=== PATIENT | female | born 1960 | race Caucasian/White ===

== ENCOUNTER 2017-07-21 10:25 | Inpatient (IN) | payer BC ==
[~2017-07-21] VITALS: Ht 157.5 cm; Wt 43.0 kg
[~2017-07-21 10:25] MED LIST: AMLODIPINE BESYL5 MG PO; AVELOX400 MG PO; FLORASTOR250 M1 PO; IPRATROPIU0.5 MG/3 M NEB; LEVAQUIN750 MG PO; PREDNISONE10 MG PO
--- NOTE | 2017-07-21 10:25 | NUR ---
PT TO ROOM FOR TREATMENT
[2017-07-21 10:51] LABS: HEMATOCRIT 47.9 % (37.0-47.0); HEMOGLOBIN 16.1 g/dl (12.0-16.0); MEAN CELL VOLUME 98.4 fL CALC (80.0-100.0); MEAN CORPUSCULAR HGB 33.1 pG CALC (26.0-32.0); MEAN CORPUSCULAR HGB CONC 33.6 g/L CALC (32.0-36.0); NEUT# 12.34 thou/uL (2.00-7.15); RED BLOOD COUNT 4.87 mill/uL (4.20-5.60); RED CELL DISTRI WIDTH 13.2 % (11.5-15.5)
--- NOTE | 2017-07-21 10:54 | NUR ---
PT TO ROOM FOR BEDSIDE TRIAGE; NOTED TO BE SOB, STATES HAS KNOWN PNEMONIA. EKG OBTAINED WITH RESULTS TO DR. WILL. IV ESTABLISHED WITH LABS. RT AT BEDSIDE.
[2017-07-21 10:57] LABS: ALBUMIN 4.2 g/dL (3.2-5.0); ALKALINE PHOSPHATASE 62 u/l (38-126); ANION GAP 14 (6-22 (CALC)); BILIRUBIN, TOTAL 0.5 mg/dL (0.0-1.4); BUN 10 mg/dL (7-17); BUN/CREATININE RATIO 15 (12-20 (CALC)); CALCIUM 9.1 mg/dL (8.4-10.2); CARBON DIOXIDE 31 mmol/l (22-30); CHLORIDE 99 mmol/l (95-108); CREATININE 0.6 mg/dL (0.5-1.0); GFR > 60 ML/MIN (>=60 (CALC)); GFR FOR AFR.AMER. > 60 ML/MIN (>=60 (CALC)); GLUCOSE 97 mg/dL (65-105); POTASSIUM 4.1 mmol/l (3.5-5.1); SGOT/AST 20 u/l (14-36); SGPT/ALT 37 u/l (9-52); SODIUM 141 mmol/l (137-146)
[2017-07-21] MEDS ORDERED: SYMBICORT1 AE1 IN (11:02)
[2017-07-21] MEDS ORDERED: PROAIR HFA IN (11:02)
[2017-07-21 11:11] LABS: MYOGLOBIN 80 ng/mL (0 - 62)
--- NOTE | 2017-07-21 11:50 | NUR ---
PATIENT RESTING COMRFORTABLY IN STRETCHER WITH HOB ELEVATED. SA02 96% ON 2 L NC. PATIENT DENIES ANY PAIN OR SOB AT THIS TIME. PATIENT REPORTS CONTINUED L ARM TINGLING. PATIENT DENIES ANY NEEDS AT THIS TIME. CALL GILLETTE WITHIN REACH.
--- NOTE | 2017-07-21 12:40 | NUR ---
PATIENT AWARE OF PENDING ADMISSION. PATIENT DENIES ANY SOB OR PAIN AT THIS TIME. PATIENT RESTING COMFORTABLY IN STRETCHER WITH HOB ELEVATED, DENIES ANY NEEDS AT THIS TIME. CALL GILLETTE NAVEEN WALL, WILL CONTINUE TO MONITOR.
--- NOTE | 2017-07-21 12:45 | NUR ---
ADVISED OF ELEVATED LACTIC ACID RESULTS. NO NEW ORDERS RECIEVED.
--- NOTE | 2017-07-21 12:47 | NUR ---
SBAR PRINTED TO FLOOR
--- NOTE | 2017-07-21 12:53 | NUR ---
REPORT GIVEN TO KHAI.
--- NOTE | 2017-07-21 13:05 | NUR ---
Admission Note Report Given to: sbar printed to floor Transported by: Wheelchair x Stretcher Transported with: x Nurse Transporter x Patent IV O2 First Officer
[2017-07-21 13:16] VITALS: BP 131/71
--- NOTE | 2017-07-21 13:27 | NUR ---
REPORT RECEIVED FROM ERA IN ED, PT ARRIVED ON UNIT ACCOMPANIED BY STAFF ADRI, ALERT AND ORIENTED X 3, SOB AND WINDED AND THIS TIME, ROOM FAN PLACED, O2 @ 2L IN PLACE VIA NC, EDUCATED ON FALL PRECAUTION. ORIENTED TO ROOM AND CALL GILLETTE, DENIES PAIN AT THIS TIME, SETTLED IN ROOM ON SIDE OF BED IN SITTING POSITION FOR IMPROVED BREATHING. WILL CONTINUE TO MONITOR.
--- NOTE | 2017-07-21 15:43 | NUR ---
RESTING IN BED AT THIS TIME, BREATHING STILL SHALLOW BUT IMPROVING, SPOUSE AT BEDSIDE, CALL GILLETTE IN REACH.
[2017-07-21 16:36] LABS: URINE BILIRUBIN - DIPSTICK NEGATIVE (NEGATIVE); URINE BLOOD DIPSTICK NEGATIVE (NEGATIVE); URINE CLARITY CLEAR; URINE COLOR YELLOW; URINE GLUCOSE - DIPSTICK NEGATIVE (NEGATIVE); URINE KETONE NEGATIVE (NEGATIVE); URINE LEUK ESTERASE NEGATIVE (NEGATIVE); URINE NITRITE - DIPSTICK NEGATIVE (Negative); URINE PROTEIN - DIPSTICK NEGATIVE (NEG-TRACE); URINE UROBILINOGEN - DIPSTICK 0.2 E.U./dL (0.2)
[2017-07-21 17:05] VITALS: BP 153/71
[2017-07-21 19:40] VITALS: BP 142/68
--- NOTE | 2017-07-21 19:51 | NUR ---
PT IN BED WATCHING TV RESPIRATIONS EVEN AND UNLABORED ON O2 @2L VIA NC, BECOMES SOB WHEN TALKING, WHEEZING AUDIBLE, IV FLUIDS STARTED TO LAC AT 75CC/HR, INFUSING WITH NO COMPLICATIONS. ATE 25% OF 2GM NA DINNER. ENCOURAGED TO USE CALL LIGHT FOR ASSISTNACE, WILL CONTINUE TO MONITOR.
--- NOTE | 2017-07-21 21:00 | NUR ---
C/O PAIN TO LAC IV SITE, NEW IV STARTED TO LFA #20 ON 1ST ATTEMPT, IV TO LAC DC'D WITH CATH TIP INTACT, TOLERATED WELL. IV FLUIDS INFUSING WITH NO COMPLICATIONS.
--- NOTE | 2017-07-22 00:12 | NUR ---
RESTING ON LEFT SIDE WITH EYES CLOSED, RESPIRATIONS EVEN AND UNLABORED. IV FLUIDS INFUSING TO LFA WITH NO COMPLICATIONS, CALL LIGHT IN REACH.
--- NOTE | 2017-07-22 04:50 | NUR ---
MORNING BLOOD WORK DRAWN BY COMMUNICATIONS SUPERINTENDENT, PT TOLERATED WELL. ADMITS TO HAVING A GOOD NIGHTS SLEEP, RESPIRATIONS EVEN AND UNLABORED. FRESH ICE WATER PROVIDED PER PT REQUEST. CALL LIGHT IN REACH.
[2017-07-22 05:02] VITALS: BP 148/67
[2017-07-22 05:30] LABS: ANION GAP 8 (6-22 (CALC)); BUN 10 mg/dL (7-17); BUN/CREATININE RATIO 21 (12-20 (CALC)); CALCIUM 8.4 mg/dL (8.4-10.2); CARBON DIOXIDE 30 mmol/l (22-30); CHLORIDE 107 mmol/l (95-108); CREATININE 0.5 mg/dL (0.5-1.0); GFR > 60 ML/MIN (>=60 (CALC)); GFR FOR AFR.AMER. > 60 ML/MIN (>=60 (CALC)); GLUCOSE 149 mg/dL (65-105); MAGNESIUM 2.4 mg/dL (1.6-2.3); POTASSIUM 4.5 mmol/l (3.5-5.1); SODIUM 139 mmol/l (137-146)
--- NOTE | 2017-07-22 06:35 | NUR ---
PT REQUESTING NICOTINE PATCH EARLY, APPLIED TO FERMIN.
--- NOTE | 2017-07-22 07:00 | NUR ---
SHIFT CHANGE REPORT FROM MARIANO, ALAINA AWAKE ALERT AND ORIENTED SITTING UP IN BED AND WATCHING TV, BREATHING MUCH IMPROVED SINCE YESTERDAY, O2 @ 2L VIA NC IN PLACE, IVF INFUSING, CALL GILLETTE IN REACH.
--- NOTE | 2017-07-22 12:56 | NUR ---
ATTEMPTED TO AMBULATE PT EARLIER BUT WAS TOO SOB AT THAT TIME, REASSESSED PT AT THIS TIME BUT REFUSED AGAIN STATING SHE WILL TRY LATER. BASED ON MY ASSESSMENT OF PT I WILL AGREE WITH HER AT THIS TIME SHE IS WINDED/HYPERVENTILATING. ENCOURAGED TO DO PURSED LIP BREATHING, WILL CONTINUE TO MONITOR.
--- NOTE | 2017-07-22 14:38 | NUR ---
COUGHING PROFUSELY AT THIS TIME, GUAIFENESIN SUSPENSION OFFERED.
--- NOTE | 2017-07-22 15:56 | NUR ---
COUGHING HAS SUBSIDED AND PT REPORTS COUGH MED MADE HER FEEL BETTER; HOWEVER, SHE DECLINED TO AMBULATE AT THIS TIME STATING SHE IS NOT YET READY, WILL CONTINUE TO MONITOR.
[2017-07-22 16:05] VITALS: BP 135/55
--- NOTE | 2017-07-22 17:50 | NUR ---
O2 DECREASED TO 1L FOR PAST 30 MINS, SATS AT 100% AT THIS TIME, BREATHING EVEN AND NON-LABORED.
--- NOTE | 2017-07-22 19:20 | NUR ---
RECEIVED BEDSIDE REPORT FROM KHAIRN;PT RESTING IN SEMI FOWLERS POSITION WATCHING TV;RESPIRATIONS EVEN AND UNLABORED ON 02 @ 1L VIA NC;VS OBTAINED,02 SATS @ 97%;ASSESSMENT COMPLETED;#20G TO LFA INFUSING D5 LR @ 75ML/HR;PT A&O X3;SKIN INTACT,NICOTINE PATCH NOTED TO RIGHT UPPER ARM;PT VOICES NO COMPLAINTS AT THIS TIME;SAFETY PRECAUTIONS REINFORCED;PT EDUCATED TO CALL FOR ASSISTANCE IF NEEDED;COMMODE AT BEDSIDE;CALL LIGHT IN REACH;WILL CONTINUE TO MONITOR
[2017-07-22 19:25] VITALS: BP 138/70
--- NOTE | 2017-07-22 20:50 | NUR ---
PT REQUESTS COUGH MEDICATION;PT MEDICATED WITH PRN GUAIFENESIN-CODEINE AT THIS TIME
--- NOTE | 2017-07-22 23:20 | NUR ---
PT RESTING IN SUPINE POSITION WATCHING TV;PT O2 CHECKED, O2 SATS @ 96% ON OXYGEN AT 1L;RESPIRATIONS EVEN AND UNLABORED;BEDSIDE COMMODE EMPTIED OF 700CC OF CLEAR/YELLOW URINE;PT DENIES ANY NEEDS AT THIS TIME;FALL PRECAUTIONS IN PLACE;WILL CONTINUE TO MONITOR
--- NOTE | 2017-07-23 01:05 | NUR ---
RT AT BEDSIDE;PT 02 SATS @ 97% ON RA;PT DENIES ANY SOB;RESPIRATIONS EVEN AND UNLABORED;PT VOICES NO COMPLAINTS AT THIS TIME;CALL LIGHT IN REACH;WILL CONTINUE TO MONITOR
--- NOTE | 2017-07-23 03:40 | NUR ---
PATIENT CONT UP AND DOWN TO THE BR WITHOUT ANY DIFFICULTY. VOIDING IN GOOD AMTS. ABD DRESSINGS CHANGED=SCANT AMT OF SEROUS DRAINAGE NOTED FROM THE POST-OP INCISION AND SMALL AMT OF SEROUS NOTED FROM OLD OSTOMY SITE. RAMSEY INTACT AND WELL APPROXIMATED. DSD REAPPLIED ORDERED. DRESSING REMOVED FROM ISAIAH SITE WITH SCANT DRAINAGE AND LARGE BANDAID APPLIED. PATIENT HAVING ALOT OF BELCHING AND AMT IN THE HALLS. TOLERATED WELL. SITTING UP IN THE RECLINER AT THIS TIME. PAIN MANAGEMENT DOING WELL WITH TORADOL. SAFETY PRECAUTIONS REINFORCED. CALL LIGHT IN REACH. WILL CONT TO MONITOR.
--- NOTE | 2017-07-23 03:50 | NUR ---
PT APPEARS TO BE RESTING IN SEMI FOWLERS POSITION;NO SIGNS OF DISTRESS;PT REPORTS DIFFICULTY SLEEPING THROUGHOUT THE NIGHT;RESPIRATIONS EVEN AND UNLABORED ON RA;VS OBTAIN;02 SATS @ 91%;FAN AT BEDSIDE FOR COMFORT;PT VOICES NO COMPLAINTS AT THIS TIME;PT EDUCATED TO CALL FOR ASSISTANCE IF NEEDED;SAFETY PRECAUTIONS IN PLACE;WILL CONTINUE TO MONITOR
[2017-07-23 03:51] VITALS: BP 128/65
--- NOTE | 2017-07-23 06:00 | NUR ---
FRESH WATER AND COFFEE PROVIDED TO PT PER REQUEST;NO SIGNS OF DISTRESS NOTED;PT RESTING IN SEMI FOWLERS POSITION WATCHING TV;WILL CONTINUE TO MONITOR
--- NOTE | 2017-07-23 07:04 | NUR ---
REPORT RECEIVED FROM NIGHT NURSE, UPON ENTERING ROOM PT.IS SITTING UP IN BED IN SLIGHT TRIPOD POSITION COUGHING. PT.ASKED FOR COUGH SYRUP. V/S ARE BE3ING AWSSESSED AND PT. PROVIDED WITH COUGH SYRUP.
[2017-07-23 07:08] VITALS: BP 161/72
--- NOTE | 2017-07-23 07:30 | NUR ---
PT.MEDICATED WITH ROBITUSSIN REQUESTED, ASSESSMENT COMPLETED, EXPIRATORY WHEEZING LUNG SOUNDS IN ALL LOBES, SKIN INTACT, PT.LOCX3, PT.WANTED O2 ON FOR A LITTLE WHILE/02 SAT AT 99% ON 02@1L. DENIES ANY PAIN OR DISCOMFORT AT THIS TIME AND IS REQUESTING FRESH COFFEE AT THIS TIME, COFFEE WILL BE PROVIDED AND WILL FOLLOW-UP WITH AM MEDICATIONS ORDERED.
[2017-07-23 08:08] VITALS: BP 153/54
[2017-07-23 13:15] VITALS: BP 155/74
--- NOTE | 2017-07-23 14:05 | NUR ---
PT.UPRIGHT IN BED WATCHING TV. DENIES ANY NEEDS AT THIS TIME. NO S/S OF DISTRESS. PT.O2SAT ON ROOM AIR 93% PT.AMBULATED ROOM W/MILD SOB REPORTED. CALL LIGHT IS AT SIDE AND PT.REMINDED TO CALL IF ANY NEEDS ARISE
[2017-07-23 16:40] VITALS: BP 174/68
--- NOTE | 2017-07-23 17:55 | NUR ---
PT.MEDICATED ORDERS PROVIDE, SUPPER TRAY CLEARED HALF EATEN/PT.ASKED FOR TRAY TO BE TAKEN. IV ANTIBIOTIC THERAPY IS COMPLETE, IV FLUSHED. PT.DENIES ANY OTHER NEEDS AT THIS TIME, CALL LIGHT AT SIDE.
--- NOTE | 2017-07-23 18:29 | NUR ---
PT.UPRIGHT IN BED, REPORTS AMBULATED ROOM. REPORTS MILD SOB/DENIES DISTRESS AMBULATING. LUNG SOUNDS ARE MILD EXPIRATORY WHEEZING, BUT IMPROVED FROM THIS MORNING.
--- NOTE | 2017-07-23 19:50 | NUR ---
PT RESTING IN SEMI FOWLERS POSITION WATCHING TV;PT VOICES NO COMPLAINTS AT THIS TIME;RESPIRATIONS APPEAR EVEN AND UNLABORED ON RA;ASSESSMENT COMPLETED AND VS OBTAINED;02 SATS @ 92%;FAN AT BEDSIDE FOR COMFORT;#20G TO LEFT FOREARM FLUSHED AND PATENT;NON-PRODUCTIVE COUGH NOTED;SKIN INTACT;SAFETY PRECAUTIONS REINFORCED;PT DENIES ANY NEEDS AT THIS TIME AND IS EDUCATED TO CALL FOR ASSISTANCE IF NEEDED;BED IN LOWEST POSITION WITH CALL LIGHT IN REACH;WILL CONTINUE TO MONITOR
[2017-07-23 19:54] VITALS: BP 143/74
--- NOTE | 2017-07-24 00:25 | NUR ---
PT AWAKE WATCHING TV;OXYGEN CHECKED AT THIS TIME REPORTING 93% ON RA;RESP EVEN AND UNLABORED;BEDSIDE COMMODE EMPTIED OF 300CC OF CLEAR/YELLOW URINE;ICE CREAM PROVIDED PER REQUEST;PT DENIES ANY OTHER NEEDS AT THIS TIME;CALL LIGHT IN REACH;WILL CONTINUE TO MONITOR
[2017-07-24 04:39] VITALS: BP 139/91
--- NOTE | 2017-07-24 04:40 | NUR ---
RT JUST LEFT BEDSIDE;PT WATCHING TV IN SEMI FOWLERS POSITION;PRODUCTIVE COUGH NOTED;RESP EVEN AND UNLABORED ON RA;VS OBTAINED WITH AN 02 SAT OF 91%;PT VOICES NO COMPLAINTS;FRESH WATER PROVIDED PER REQUEST;PT DENIES THE NEED FOR PRN GUAIFENESIN;FALL PRECAUTIONS IN PLACE;WILL CONTINUE TO MONITOR
[2017-07-24 05:39] LABS: MEAN CELL VOLUME 97.4 fL CALC (80.0-100.0); MEAN CORPUSCULAR HGB 32.5 pG CALC (26.0-32.0); MEAN CORPUSCULAR HGB CONC 33.3 g/L CALC (32.0-36.0); RED BLOOD COUNT 4.31 mill/uL (4.20-5.60)
[2017-07-24 05:43] LABS: ANION GAP 12 (6-22 (CALC)); BUN 11 mg/dL (7-17); BUN/CREATININE RATIO 20 (12-20 (CALC)); CALCIUM 8.8 mg/dL (8.4-10.2); CARBON DIOXIDE 30 mmol/l (22-30); CHLORIDE 104 mmol/l (95-108); CREATININE 0.6 mg/dL (0.5-1.0); GFR > 60 ML/MIN (>=60 (CALC)); GFR FOR AFR.AMER. > 60 ML/MIN (>=60 (CALC)); GLUCOSE 108 mg/dL (65-105); MAGNESIUM 2.4 mg/dL (1.6-2.3); POTASSIUM 4.1 mmol/l (3.5-5.1); SODIUM 142 mmol/l (137-146)
--- NOTE | 2017-07-24 06:40 | NUR ---
PT TO XRAY AT THIS TIME VIA WC
--- NOTE | 2017-07-24 06:50 | NUR ---
PT TRANSFERRED BACK TO FLOOR IN STABLE CONDITION VIA WC
--- NOTE | 2017-07-24 07:00 | NUR ---
SHIFT CHANGE REPORT FROM SUSAN, PT AWAKE ALERT AND ORIENTED, BREATHING EVEN AND NON-LABORED ON ROOM AIR, STATES SHE FEELS MUCH BETTER AND HAS BEEN AMBULATING IN ROOM, ALL NEEDS ADDRESSED, CALL GILLETTE IN REACH.
[2017-07-24 07:58] VITALS: BP 144/76
[2017-07-24] MEDS ORDERED: WELLBUTRIN150 M1 PO (11:17)
[2017-07-24] MEDS ORDERED: PREDNISONE10 MG PO (11:18)
[2017-07-24] MEDS ORDERED: NICODERM C21 MG/242 TD (11:19)
[2017-07-24] MEDS ORDERED: VITAMIN B-121000 MCG PO (11:19)
--- NOTE | 2017-07-24 12:09 | NUR ---
DR POTTS REPORTED PRESCRIPTIONS FAXED TO [facility] AND THEY REPORTED THEY HAD NOT RECIEVED THEM, PHARMACY CALLED AND STAFF REPORTED ORDERS ARE RECEIVED AT THIS TIME.
--- NOTE | 2017-07-24 12:09 | NUR ---
AM: THE THERAPIST ENTERED THE ROOM TO COMPLETE A P.T. EVALUATION. STATED SHE WAS GOING HOME. PATIENT IS DRESSED. STATED SHE DRESSED AND PACKED INDEP. STATED SHE DID NOT REQUIRE THERAPY SHE WAS WALKING ALL OVER THE ROOM. SHE STOOD AND MOVED AROUND FOR THE THERAPIST AND THE THERAPIST AGREED AN EVAL WAS NOT APPROPRIATE AT THIS TIME.
--- NOTE | 2017-07-24 12:36 | NUR ---
Discharge instructions given. Patient verbalizes understanding of same. Discharged in stable condition via Wheelchair to Home with spouse. All belongings sent with pt.
== END 2017-07-24 12:20 | disposition home or self-care (01) | DRG 191 ==
LOC: ED 10:25 → ED-I 11:04 → ED 12:47 → MS2 12:48
PROVIDERS: Emergency Medicine; Internal Medicine; ADMIT Internal Medicine; ATTEND Internal Medicine
DX: J44.1 Chronic obstructive pulmonary disease with (acute) exacerbation (principal); Z68.1 Body mass index [BMI] 19.9 or less, adult; G62.9 Polyneuropathy, unspecified; E53.8 Deficiency of other specified B group vitamins; R63.6 Underweight; J44.0 Chronic obstructive pulmonary disease with (acute) lower respiratory infection; J20.9 Acute bronchitis, unspecified; F17.210 Nicotine dependence, cigarettes, uncomplicated; M81.0 Age-related osteoporosis without current pathological fracture; R03.0 Elevated blood-pressure reading, without diagnosis of hypertension; T38.0X5A Adverse effect of glucocorticoids and synthetic analogues, initial encounter; D72.829 Elevated white blood cell count, unspecified
CPT/HCPCS: J1650

== ENCOUNTER 2017-08-21 18:31 | Inpatient (IN) | payer BC ==
[~2017-08-21] VITALS: Ht 154.9 cm; Wt 42.2 kg
[~2017-08-21 18:31] MED LIST changes: +NICODERM C21 MG/242 TD; +PROAIR HFA IN; +SYMBICORT1 AE1 IN; +VITAMIN B-121000 MCG PO; +WELLBUTRIN150 M1 PO
--- NOTE | 2017-08-21 18:38 | NUR ---
PATIENT TO ROOM VIA EMS AND PHYSICIAN AT BEDSIDE FOR EVALUATION
--- NOTE | 2017-08-21 19:02 | NUR ---
BREATHING TREATMENT GIVEN BACK TO BACK FOR WHEEZING AND SOB. BREATHING TECH. FOR GOOD DEPOSITION TO THE LUNGS.
[2017-08-21] MEDS ORDERED: PROTONIX40 M2 PO (19:03)
--- NOTE | 2017-08-21 19:16 | NUR ---
RECEIVED REPORT FROM DAMARIS MENDOZA AND TOOK OVER PT CARE. WHILE ADMINISTERING SOULMEDROL INFORMED PT OF NEED TO QUIT SMOKING. INFORMED PT HER BREATHING PROBLEMS DUE TO SMOKING AND PT TOLD ME NO IT'S NOT. DISCUSSED IN LENGTH WITH FAMILY IN THE ROOM ABOUT THE EFFECTES SMOKING WAS DOING TO PT AND STOPPING WILL PREVENT FURTHER DAMAGE BUT NOT REPAIR DAMAGED TISSUE.
[2017-08-21 19:29] LABS: HEMATOCRIT 41.7 % (37.0-47.0); HEMOGLOBIN 13.8 g/dl (12.0-16.0); IMMATURE GRANULOCYTES 0.9 % (0.0-1.0); MEAN CELL VOLUME 96.1 fL CALC (80.0-100.0); MEAN CORPUSCULAR HGB 31.8 pG CALC (26.0-32.0); MEAN CORPUSCULAR HGB CONC 33.1 g/L CALC (32.0-36.0); NEUT# 13.02 thou/uL (2.00-7.15); RED BLOOD COUNT 4.34 mill/uL (4.20-5.60); RED CELL DISTRI WIDTH 13.6 % (11.5-15.5)
[2017-08-21 19:45] LABS: ALBUMIN 4.2 g/dL (3.2-5.0); ALKALINE PHOSPHATASE 70 u/l (38-126); ANION GAP 13 (6-22 (CALC)); BILIRUBIN, TOTAL 0.5 mg/dL (0.0-1.4); BUN 5 mg/dL (7-17); BUN/CREATININE RATIO 9 (12-20 (CALC)); CALCIUM 9.2 mg/dL (8.4-10.2); CARBON DIOXIDE 28 mmol/l (22-30); CHLORIDE 97 mmol/l (95-108); CREATININE 0.6 mg/dL (0.5-1.0); GFR > 60 ML/MIN (>=60 (CALC)); GFR FOR AFR.AMER. > 60 ML/MIN (>=60 (CALC)); GLUCOSE 132 mg/dL (65-105); POTASSIUM 4.2 mmol/l (3.5-5.1); SGOT/AST 26 u/l (14-36); SGPT/ALT 31 u/l (9-52); SODIUM 134 mmol/l (137-146); TOTAL PROTEIN 7.1 g/dL (6.3-8.2)
--- NOTE | 2017-08-21 19:49 | NUR ---
DR WILL IN TO UPDATE PT AND FAMILY ON PLAN OF CARE.
[2017-08-21 19:57] LABS: MYOGLOBIN 97 ng/mL (0 - 62)
--- NOTE | 2017-08-21 20:16 | NUR ---
REPEAT EKG DONE PER REQUEST.
--- NOTE | 2017-08-21 20:30 | NUR ---
PT TO BE ADMITTED. BED NUMBER RECEIVED. ASKED TO WAIT 20 MINUTES BEFORE CALLING FOR REPORT.
--- NOTE | 2017-08-21 20:40 | NUR ---
INQUIRED ABOUT ANTIBIOTIC DUE TO ELEVATED TEMP, RESP AND LOW SAT. ROCEPHIN ORDERED
--- NOTE | 2017-08-21 21:02 | NUR ---
REPORT GIVEN TO OLIVER PIZARRO
--- NOTE | 2017-08-21 21:10 | NUR ---
WENT TO TAKE PT UPSTAIRS AND NO ADMIT PAPERS DONE.
--- NOTE | 2017-08-21 21:25 | NUR ---
REPEAT LACTIC ACID DRAWN. RECEIVED ADMIT PACKET. Admission Note Report Given to: OLIVER PIZARRO Transported by: Wheelchair X Stretcher Transported with: X Nurse Transporter X Patent IV X O2 X Apparel Cutter
--- NOTE | 2017-08-21 21:28 | NUR ---
PT ARRIVED TO UNIT VIA STRETCHER WITH ER STAFF. ALERT AND ORIENTED. AMBULATED TO BED WITH ONE PERSON ASSIST. DENIES PAIN UPON ARRIVAL. SHORT OF BREATH WITH EXERTION; PLACED ON 3L OF OXYGEN VIA NC. ORIENTED TO ROOM AND CALL LIGHT SYSTEM.
[2017-08-21 21:30] VITALS: BP 96/55
[2017-08-21 22:30] VITALS: BP 106/57
[2017-08-22] VITALS (22 sets, daily range): BP systolic 84–121; BP diastolic 50–70
--- NOTE | 2017-08-22 00:44 | NUR ---
BLOOD PRESSURES HAVE BEEN MONITORED SINCE ARRIVAL TO UNIT PER SEPSIS PROTOCOL. SBP REMAINS ABOVE 90. IV ABT INFUSING AT THIS TIME. PT TOLEATING BREATING TREATMENTS WELL. UP TO BATHROOM WITH EXTENSION TUBING FOR OXYGEN. PLAN OF CARE DISCUSSED. PT ENCOURAGE TO VERBALIZE CONCERNS. STATES UNDERSTANDING. SAFETY MEASURES IN PLACE. CALL LIGHT WITHIN REACH.
--- NOTE | 2017-08-22 03:19 | NUR ---
FLUID BOLUS OF 1500ML COMPLETED. BLOOD PRESSURE AT THIS TIME IS 114/61 PULSE 98. WILL CONTINUE TO MONITOR BLOOD PRESSURES FOR PERSISTENT HYPOTENSION.
[2017-08-22 05:18] LABS: HEMOGLOBIN 12.1 g/dl (12.0-16.0); MEAN CELL VOLUME 96.5 fL CALC (80.0-100.0); MEAN CORPUSCULAR HGB 32.4 pG CALC (26.0-32.0); MEAN CORPUSCULAR HGB CONC 33.6 g/L CALC (32.0-36.0); RED BLOOD COUNT 3.73 mill/uL (4.20-5.60); RED CELL DISTRI WIDTH 13.3 % (11.5-15.5)
[2017-08-22 05:34] LABS: BUN 5 mg/dL (7-17); BUN/CREATININE RATIO 11 (12-20 (CALC)); CALCIUM 8.2 mg/dL (8.4-10.2); CARBON DIOXIDE 28 mmol/l (22-30); CREATININE 0.5 mg/dL (0.5-1.0); GFR > 60 ML/MIN (>=60 (CALC)); GFR FOR AFR.AMER. > 60 ML/MIN (>=60 (CALC)); GLUCOSE 144 mg/dL (65-105); POTASSIUM 4.6 mmol/l (3.5-5.1); SODIUM 143 mmol/l (137-146)
[2017-08-22 05:37] LABS: ANION GAP 12 (6-22 (CALC)); CHLORIDE 108 mmol/l (95-108)
--- NOTE | 2017-08-22 06:00 | NUR ---
CRITICAL LAB RESULTS FOR ELEVATED TROPONIN RECEIVED FROM LAB. NO ACTIVE CHEST PAIN AND NORMAL EKG. DR. POTTS NOTIFIED. NEW ORDERS IN PLACE INCLUDING TRANSFER PT TO ICU BED 8. PT INFORMED OF ALL ORDERS. REPORT GIVEN TO DAMARIS VOSS IN ICU. TRANSFERED PT VIA STRETCHER. PT IN STABLE CONDITION; ALERT AND ORIENTED WHEN ARRIVED TO ICU UNIT.
--- NOTE | 2017-08-22 06:15 | NUR ---
RECEIVED PT IN BED FROM [facility] TO ROOM 8. PT ON MONITOR. BP 91/58. HR 96 O2 100% ON O2 3L NC. TEMP 98.5. RESP 22. PT RESP ARE LABORED AND EVEN. PT IS ALERT AND ORIENTED X3. PERRLA. LUNGS HAVE INSPIRATORY AND EXPIRATORY WHEEZING. HR REGULAR. NO EDEMA NOTED. PULSES PALPABLE THROUGHOUT. BS ACTIVE. PT REPORTS A NORMAL BM YESTERDAY. #22 RFA WITH NS @150CC/HR INFUSING. NO REDNESS OR EDEMA NOTED. WILL CONTINUE TO MONITOR.
--- NOTE | 2017-08-22 06:45 | NUR ---
REPORT RECEIVED FROM DAMARIS VOSS. PT AWAKE AND ALERT WATCHING TV, VOICES NO CONERNS AT THIS TIME. DENIES PAIN OF ANY NATURE. CALL LIGHT WITHIN REACH. INSTRUCTED PT TO CALL FOR ASSISTANCE, PT VERBALIZES UNDERSTANDING.
--- NOTE | 2017-08-22 07:30 | NUR ---
PT ASSESSMENT PERFORMED AT THIS TIME. HAS SOB WITH MINIMAL EXERTION. PT DENIES BEING DEPENDANT OF OXYGEN THERAPY AT HOME. STATES "THERE GONNA GIVE IT TO ME THIS TIME WHEN I GO HOME." PLAN OF CARE DISCUSSED WITH PT IN REGARDS TO CARDIAC ENZYMES AND CARDIAC MONITORING, REPORTING OF ANY PAIN, BLOOD PRESSURE MONITORING. PT STATES UNDERSTANDING. PT EAGER FOR BREAKFAST, STATES " I HAVENT ATE IN TWO DAYS." BREAKFAST TRAY PROVIDED AT THIS TIME. PT ABLE TO SIT UP IN BED. LUNG SOUNDS AUSCILTATED, PT BECOMES TACHYPNEIC, SITS BACK IN BED, VERY SOB. STATES "IM BURNING UP IN HERE, IS IT HOT TO YOU?" FAN PROVIDED, GIVEN EDUCATION IN REGARDS TO PURSED LIP BREATHING. PT ABLE TO RECOVER AND CONTINUE EATING, DENIES THE NEED FOR MEAL ASSISTANCE. CALL LIGHT WITHIN REACH. INSTRUCTED PT TO CALL FOR ASSISTANCE, STATES UNDERSTANDING.
--- NOTE | 2017-08-22 08:50 | NUR ---
STAT TROPONIN DRAWN AND SENT TO LAB.
--- NOTE | 2017-08-22 09:59 | NUR ---
NOTIFIED OF CRITICAL TROPONIN RESULT. NO NEW ORDERS AT THIS TIME, PT AND FAMILY AWARE OF LATEST LAB RESULT. PT STATES UNDERSTANDING. PT CONTINUES TO DENY ANY TYPE OF CP, TINGLING, NUMBNESS, BURNING, DIAPHORESIS, OR ANY OTHER CARDIAC RELATED SYMPTOMS OF POSSIBLE [place]. EDUCATION OF TOBACCO CESSATION GIVEN. PT STATES UNDERSTANDING, APPREHENSIVE TO QUIT, WILL CONTINUE TO EDUCATE.
[2017-08-22] MEDS ORDERED: ALENDRONATE70 MG PO (11:15)
[2017-08-22] MEDS ORDERED: MUCINEX MAXIM1200 MG PO (11:19)
[2017-08-22] MEDS ORDERED: [UNRECOGNIZED DRUG - OTHER] (11:22)
[2017-08-22] MEDS ORDERED: NICOTINE T21 MG/242 TD (11:25)
--- NOTE | 2017-08-22 11:59 | NUR ---
PT TOLERATING MEAL TRAY. HAS LESS EXERTION THAN PREVIOUS ATTEMPT WHEN EATING. CALL LIGHT WITHIN REACH. INSTRUCTED PT TO CALL FOR ASSISTANCE, PT VERBALIZES UNDERSTANDING.
--- NOTE | 2017-08-22 12:30 | NUR ---
DR. IQBAL IN TO SEE PT AT THIS TIME. MD DOES NOT WANT TO TRANSFER FOR FURTHER CARDIAC EVALUATION. WILL CONTINUE CARDIAC FOLLOW UP OUTPT. CARDIAC ENZYMES WILL STILL CONTINUE. PT STATES UNDERSTANDING.
--- NOTE | 2017-08-22 12:55 | NUR ---
MEDICAL RECORDS REQUEST FORM SENT TO DR. SNELL CARIOLOGY OFFICE. WILL NOTIFY DR. IQBAL WHEN RECORDS FAXED. CONFIRMATION RECEIVED ALSO AT THIS TIME.
--- NOTE | 2017-08-22 13:21 | NUR ---
MEDICAL RECORDS RECEIVED AND FAXED TO DR. IQBAL. CONFIRMATION RECEIVED ALSO.
[2017-08-22 13:51] LABS: CALCULATED LDLCHOLESTEROL 153 mg/dL (62-129 (CALC)); CHOLESTEROL HDL RATIO 4.7 (<4.4 (CALC)); HDL CHOLESTEROL 44 mg/dL (>=40); TOTAL CHOLESTEROL 207 mg/dl (0-199); TOTAL TRIGLYCERIDES 48 mg/dl (30-149); VLDL CHOLESTROL 10 mg/dl (2-49 (CALC))
--- NOTE | 2017-08-22 15:21 | NUR ---
PT REQUESTING PITCHER OF TEA AT BS. KITCHEN NOTIFIED, PT IS ON REGULAR DIET WITH NO RESTRICTIONS. VS, NO COMPLAINTS AT THIS TIME, DENIES PAIN. WILL CONTINUE TO MONITOR.
--- NOTE | 2017-08-22 17:16 | NUR ---
NICOTENE PATCH APPLIED TO THE RIGHT UPPER ARM.
--- NOTE | 2017-08-22 18:27 | NUR ---
UA SPECIMEN OBTAINED AT THIS TIME, SENT TO LAB. PT EXHIBITS SOB, PT LOOKING UP TO HAYDE ATTEMPTING TO CATCH BREATHE. STATES "I JUST WANT TO GET BETTER." EDUCATED AGAIN ABOUT SMOKING CESSATION, REGULAR CHECK UPS, AND ROUTINE VACCINATIONS. PT STATES UNDERSTANDING. WILL CONTINUE TO RE-EDUCATE WITH EVERY AVAILABLE CHANGE.
[2017-08-22 19:13] LABS: URINE BILIRUBIN - DIPSTICK NEGATIVE (NEGATIVE); URINE BLOOD DIPSTICK NEGATIVE (NEGATIVE); URINE COLOR YELLOW; URINE GLUCOSE - DIPSTICK NEGATIVE (NEGATIVE); URINE KETONE NEGATIVE (NEGATIVE); URINE LEUK ESTERASE NEGATIVE (NEGATIVE); URINE NITRITE - DIPSTICK NEGATIVE (Negative); URINE PH 5.5 (4.5-8.0); URINE PROTEIN - DIPSTICK NEGATIVE (NEG-TRACE); URINE UROBILINOGEN - DIPSTICK 0.2 E.U./dL (0.2)
[2017-08-22 19:20] LABS: URINE CLARITY CLEAR
--- NOTE | 2017-08-22 19:30 | NUR ---
PT SITTING UP IN BED WATCHING TV. PT IS ALERT AND ORIENTED X3. PERRLA. RESP ARE EVEN AND UNLABORED. PT IS TACHYPNEIC. PT HAS MOIST TIGHT COUGH. LUNGS HAVE INSPIRATORY AND EXPIRATORY WHEEZING. HR REGULAR. PULSES PALPABLE THROUGHOUT. NO EDEMA NOTED. BS ACTIVE. PT REPORTS A NORMAL BOWEL MOVEMENT EARLIER TODAY. #22 RFA WITH NS @150CC/HR INFUSING. NO REDNESS OR EDEMA NOTED AT SITE. O2 3L NC IN PLACE. HEART MONITOR IN PLACE. BP CUFF IN PLACE. SPO2 IN PLACE. PT DENIES PAIN AT THIS TIME. WILL CONTINUE TO MONITOR
--- NOTE | 2017-08-22 20:37 | NUR ---
PT SITTING UP IN BED WATCHING TV. NO COMPLAINTS AT THIS TIME. WILL CONTINUE TO MONITOR
--- NOTE | 2017-08-22 21:00 | NUR ---
PT SITTING UP IN BED WATCHING TV. RESP ARE SLIGHTLY LABORED ON EXERTION. RESP ARE EVEN. PT CONTINUES TO DENY PAIN AND SHORTNESS OF BREATH. O2 3L NC IN PLACE. MONITORS IN PLACE. WILL CONTINUE TO MONITOR
--- NOTE | 2017-08-22 22:00 | NUR ---
PT RESTING IN BED WITH EYES CLOSED. AROUSES TO VERBAL STIMULI. RESP ARE EVEN AND SLIGHTLY LABORED. NO DISTRESS NOTED. MONITORS IN PLACE. O2 3L NC IN PLACE. WILL CONTINUE TO MONITOR
[2017-08-23] VITALS (16 sets, daily range): BP systolic 83–159; BP diastolic 46–83
--- NOTE | 2017-08-23 | NUR ---
PT RESTING IN BED WITH EYES CLOSED. RESP ARE EVEN AND SLIGHTLY LABORED. O2 3L NC IN PLACE. MONITORS IN PLACE. PT DENIES PAIN AND SHORTNESS OF BREATH AT THIS TIME. WILL CONTINUE TO MONITOR
--- NOTE | 2017-08-23 00:23 | NUR ---
LABRATORY IN TO DRAW TROPONIN. PT TOLERATED WELL
--- NOTE | 2017-08-23 01:10 | NUR ---
DR POTTS NOTIFIED OF CRITICAL LAB VALUE TROPONIN. VALUE TRENDING DOWN
--- NOTE | 2017-08-23 01:51 | NUR ---
ASSISTED PT OOB TO BSC, UNSTEADY GAIT NOTED, VOIDED 600ML OF CLEAR YELLOW URINE, NO BM NOTED, CHANGED LINENS, PROVIDED PERINEAL CARE, PT REMAINS CONFUSE ON AND OFF, HARD TO UNDERSTAND AT TIMES, CLEAR TO GARBLE SPEECH, A/O X2, REPORTS NO COMPLAINTS, ORAL HYDRATION PROVIDED, VSS ON MONITOR, NO DISTRESS NOTED, POLICE PATROL LIEUTENANT COUGH NOTED, TOLERATED ACTIVITY WELL, IVF INFUSING PER ORDERS, IV SITE APPEARS HEALTHY, REORIENTED PT TO SURROUNDINGS AND SITUATION, ENCOURAGED TO CALL IF NEEDED. WILL CONTINUE TO MONITOR.
--- NOTE | 2017-08-23 02:03 | NUR ---
PT SITTING UP IN BED WATCHING TV. RESP ARE EVEN AND SLIGHTLY LABORED. O2 3L NC IN PLACE. MONITORS IN PLACE. DENIES PAIN. DENIES SOB. WILL CONTINUE TO MONITOR
--- NOTE | 2017-08-23 04:01 | NUR ---
PT UP TO BSC. RESP ARE EVEN AND SLIGHTLY LABORED AND BECOME MORE LABORED IN EXERTION. MONITORS IN PLACE. O2 3L NC IN PLACE. DENIES PAIN. WILL CONTINUE TO MONITOR
[2017-08-23 05:57] LABS: HEMATOCRIT 35.3 % (37.0-47.0); HEMOGLOBIN 11.4 g/dl (12.0-16.0); MEAN CELL VOLUME 98.9 fL CALC (80.0-100.0); MEAN CORPUSCULAR HGB 31.9 pG CALC (26.0-32.0); MEAN CORPUSCULAR HGB CONC 32.3 g/L CALC (32.0-36.0); RED BLOOD COUNT 3.57 mill/uL (4.20-5.60); RED CELL DISTRI WIDTH 13.7 % (11.5-15.5)
--- NOTE | 2017-08-23 06:04 | NUR ---
PT WITH COMPLAINTS OF ABDOMINAL PAIN. PT STATES THAT SHE FEELS LIKE IT IS A GAS PAIN. PT REQUESTED A SODA. SODA PROVIDED. WILL CONTINUE TO MONITOR
[2017-08-23 06:16] LABS: ANION GAP 11 (6-22 (CALC)); BUN 3 mg/dL (7-17); BUN/CREATININE RATIO 7 (12-20 (CALC)); CALCIUM 7.9 mg/dL (8.4-10.2); CARBON DIOXIDE 28 mmol/l (22-30); CHLORIDE 110 mmol/l (95-108); CREATININE 0.5 mg/dL (0.5-1.0); GFR > 60 ML/MIN (>=60 (CALC)); GFR FOR AFR.AMER. > 60 ML/MIN (>=60 (CALC)); GLUCOSE 125 mg/dL (65-105); MAGNESIUM 2.1 mg/dL (1.6-2.3); POTASSIUM 3.9 mmol/l (3.5-5.1); SODIUM 144 mmol/l (137-146)
--- NOTE | 2017-08-23 07:10 | NUR ---
PT LAYING IN BED WATCHING TV, PT DENIES ANY SHORTNESS OF BREATH, PT A&O X 3, PERRL, HR 92, RESP. 20, BP 165/82, O2 100% ON 3L VIA NC, LUNG SOUNDS DIMINISHED WITH INSPIRATORY & EXPIRATORY WHEEZES, 22G RFA IV WITH NS INFUSING AT PERSCRIBED, AM ASSESSMENT COMPLETE, SEE INTERVENTIONS, SAFETY MEASURES REINFORCED, CALL GILLETTE WITHIN REACH
--- NOTE | 2017-08-23 07:45 | NUR ---
PT LAYING IN BED TALKING ON HER CELL PHONE, SETUP ASSISTANCE OFFERED WITH AM MEAL TRAY, PT REFUSED AT THIS TIME, REMINDED TO CALL FOR ASSISTANCE, CALL GILLETTE WITHIN REACH
--- NOTE | 2017-08-23 08:00 | NUR ---
PT REFUSED BREAKFAST, PT STATED, "THIS ISN'T ANY KIND OF BREAKFAST. YOU CAN TELL THEM THEY CAN EAT THIS CRAP", OTHER OPTIONS WERE OFFERED TO THE PT, SHE REFUSED THOSE WELL
--- NOTE | 2017-08-23 09:05 | NUR ---
DR POTTS AT BEDSIDE DISCUSSING PLAN OF CARE
--- NOTE | 2017-08-23 09:45 | NUR ---
PT ASSISTED TO THE BSC AND BACK TO BED, PT AMBULATES WITH A SLOW STEADY GAIT, PT TOLERATED WELL, CALL GILLETTE WITHIN REACH
--- NOTE | 2017-08-23 10:55 | NUR ---
PT COMPLETED 3RD DOSE OF GASTROGRAFIN, CALL PLACED TO RADIOLOGY SPOKE TO KATIE
--- NOTE | 2017-08-23 11:35 | NUR ---
PT EDUCATED ON LUNCH BEING HELD UNTIL AFTER CT SCAN IS COMPLETE, PT VERBALIZES UNDERSTAND, REMINDED TO CALL FOR ASSISTANCE, CALL GILLETTE WITHIN REACH
--- NOTE | 2017-08-23 12:40 | NUR ---
PT TO RADIOLOGY FOR CT SCAN VIA WC
--- NOTE | 2017-08-23 13:00 | NUR ---
PT RETURNED TO THE UNIT FROM RADIOLOGY VIA WC
--- NOTE | 2017-08-23 13:20 | NUR ---
SETUP ASSISTANCE PROVIDED WITH LUNCH TRAY
--- NOTE | 2017-08-23 14:45 | NUR ---
PT SITTING UP IN BED WATCHING TV, VERBALIZES NO COMPLAINTS, REMINDED TO CALL FOR ASSISTANCE, CALL GILLETTE WITHIN REACH
--- NOTE | 2017-08-23 16:10 | NUR ---
PT SITTING UP IN BED TALKING TO HER WHO IS AT BEDSIDE, NO S/S OF DISTRESS, CALL GILLETTE WITHIN REACH
--- NOTE | 2017-08-23 18:17 | NUR ---
PT SITTING UP IN BED WATCHING TV, VERBALIZES NO COMPLAINTS, CALL GILLETTE WITHIN REACH
--- NOTE | 2017-08-23 18:23 | NUR ---
DIETARY AT BEDSIDE GOING OVER MENU OPTIONS FOR TOMORROW
--- NOTE | 2017-08-23 19:15 | NUR ---
awake. no acute resp diff. law examiner shows sinus tach ivcd. #22 rfa ns infusing @ 20cchr. po fluids taken well. voids per bsc. fall precautions cont.
--- NOTE | 2017-08-23 22:00 | NUR ---
awake. no resp distress. child monitor shows sinus rhythm ivcd.
[2017-08-24] VITALS (8 sets, daily range): BP systolic 115–170; BP diastolic 60–82
--- NOTE | 2017-08-24 00:01 | NUR ---
eyes closed. no distress. athletic monitor shows sinus rhythm ivcd.
--- NOTE | 2017-08-24 02:00 | NUR ---
resting quietly. resps unlabored. cardiac rehabilitation specialist shows sinus rhythm ivcd.
--- NOTE | 2017-08-24 04:15 | NUR ---
lab here. blood drawn.
--- NOTE | 2017-08-24 06:00 | NUR ---
no acute change in condition this shift. no resp diff.
[2017-08-24 06:15] LABS: HEMATOCRIT 37.8 % (37.0-47.0); HEMOGLOBIN 12.6 g/dl (12.0-16.0); MEAN CELL VOLUME 97.2 fL CALC (80.0-100.0); MEAN CORPUSCULAR HGB 32.4 pG CALC (26.0-32.0); MEAN CORPUSCULAR HGB CONC 33.3 g/L CALC (32.0-36.0); RED BLOOD COUNT 3.89 mill/uL (4.20-5.60); RED CELL DISTRI WIDTH 13.5 % (11.5-15.5)
[2017-08-24 06:37] LABS: ANION GAP 11 (6-22 (CALC)); BUN 2 mg/dL (7-17); BUN/CREATININE RATIO 4 (12-20 (CALC)); CALCIUM 8.4 mg/dL (8.4-10.2); CARBON DIOXIDE 37 mmol/l (22-30); CHLORIDE 99 mmol/l (95-108); CREATININE 0.5 mg/dL (0.5-1.0); GFR > 60 ML/MIN (>=60 (CALC)); GFR FOR AFR.AMER. > 60 ML/MIN (>=60 (CALC)); GLUCOSE 121 mg/dL (65-105); POTASSIUM 2.9 mmol/l (3.5-5.1); SODIUM 145 mmol/l (137-146)
--- NOTE | 2017-08-24 07:10 | NUR ---
PT LAYING IN BED WATCHING TV, A & O X3, PERRL, PT VERBALIZES NO COMPLAINTS, HR 78, RESP. 20, BP 150/67, O2 98% ON 3L VIA NC, DIMINISHED LUNG SOUNDS WITH CRACKLES THROUGHOUT, 22G RFA IV WITH NS INFUSING AT PERSCRIBED RATE, AM ASSESSMENT COMPLETE, SEE INTERVENTIONS, SAFETY MEASURES REINFORCED, CALL GILLETTE WITHIN REACH
--- NOTE | 2017-08-24 07:30 | NUR ---
SETUP ASSISTANCE PROVIDE WITH AM MEAL
--- NOTE | 2017-08-24 07:35 | NUR ---
Critical results of gram positive cocci growing on 1/[address] to [address] Vee. No new orders received.
--- NOTE | 2017-08-24 08:50 | NUR ---
DR POTTS AT BEDSIDE DISCUSSING PLAN OF CARE
--- NOTE | 2017-08-24 10:05 | NUR ---
PT SITTING UP IN THE BED WATCHING TV, NO S/S OF DISTRESS, REMINDED TO CALL FOR ASSISTANCE, CALL GILLETTE WITHIN REACH
--- NOTE | 2017-08-24 11:40 | NUR ---
SETUP ASSISTANCE PROVIDED WITH LUNCH
--- NOTE | 2017-08-24 12:45 | NUR ---
PT UP WITH ASSISTANCE TO THE BSC THEN BACK TO BED
--- NOTE | 2017-08-24 13:52 | NUR ---
S: ALEXIA KOHLI is a 57 F who presents with possible bronchitis/pneumonia with preliminary blood culture growing gram positive cocci. She has a history of HTN, hyperlipidemia, COPD, + tob, +EtOH, osteoporosis. All medications in patient's chart were reviewed. O: VS: BP 144/75, P 96, RR 20, T 97.5 W 41 kg, HT 61 in, Scr= 0.5, CrCl= 65.3 A: 1 of 2 preliminary blood cultures with gram positive cocci. P: Patient is on Zosyn 3.375 g IV Q6H. Vancomycin ordered for pharmacy to dose. Start Vancomycin 1000 mg IV Q24H. Vancomycin trough is drawn before the 4th dose on 08/27/17 at 0930. Vancomycin goal trough is between 15-20 mcg/ml. Pharmacy will follow and or advise on antibiotics use as needed.
--- NOTE | 2017-08-24 15:00 | NUR ---
FROM ICU VIA WHEELCHAIR ACCOMPANIED BY PAOLA WEEMS LPN. AMBULATED TO BED WITH STEADY GAIT. SHORTNESS OF BREATH NOTED ON EXERTION ON O2 VIA NC, TELE MONITOR IN PLACE. DENIES PAIN OR DISCOMFORT. ORIENTED TO ROOM AND CALL SYSTEM. SAFETY PRECAUTIONS REINFORCED. BED IN LOWEST POSITON WITH WHEELLS LOCKED. CALL LIGHT WIHTIN REACH. ENCOURAGED PT TO CALL FOR ANY NEEDS.
--- NOTE | 2017-08-24 15:44 | NUR ---
SPOKE TO PT DURING DAILY ROUNDS. SHE IS DOING WELL AND DID NOT HAVE ANY QUESTIONS ABOUT HER MEDICATIONS. DISCUSSED THE COMMON SIDE-EFFECTS OF ABX INCLUDING NAUSEA, VOMITING, AND DIARRHEA. PT REPORTED HAVING 2 EPISODES OF DIARRHEA TODAY STARTING AT 3 AM. ADVISED PT TO TALK TO THE NURSE IF SHE EXPERIENCES ANY FURTHER EPISODES OF DIARRHEA.
--- NOTE | 2017-08-24 20:00 | NUR ---
PT IN BED A/O X3, RESPIRATIONS EVEN AND UNLABORED ON O2 @3L VIA NC. DENIES PAIN OR DISCOMFORT. NS INFUSING TO RFA AT 20CC/HR. CALL LIGHT IN REACH, WILL CONTINUE TO MOMINOTOR.
[2017-08-25 00:25] VITALS: BP 128/70
--- NOTE | 2017-08-25 00:50 | NUR ---
RESTING ON LEFT SIDE WITH EYES CLOSED RESPIRATIONS EVEN AND UNLABORED.
[2017-08-25 04:15] VITALS: BP 140/79
--- NOTE | 2017-08-25 04:15 | NUR ---
MORNING BLOOD WORK DRAWN AT THIS TIME, TOLERATED WELL.
--- NOTE | 2017-08-25 07:00 | NUR ---
RECEIVED BEDSIDE REPORT FROM MARIANO BOYD. RESTING IN BED WITH EYES CLOSED, AWAKENS EASILY. RESPS EVEN AND UNLABORED ON O2 VIA NC, TELE MONITOR IN PLACE. #20 RFA INFUSING WITHOUT DIFFICULTY, SITE APPEARS HEALTHY. VOICES NO NEEDS AT THIS TIME. PLAN OF CARE DISCUSSED. SAFETY PRECAUTIONS REINFORCED. BED IN LOWEST POSITION WITH WHEELS LOCKED. CALL LIGHT WITHIN REACH. ENCOURAGED PT TO CALL FOR ANY NEEDS.
[2017-08-25 07:03] LABS: HEMATOCRIT 40.8 % (37.0-47.0); HEMOGLOBIN 13.5 g/dl (12.0-16.0); MEAN CELL VOLUME 97.1 fL CALC (80.0-100.0); MEAN CORPUSCULAR HGB 32.1 pG CALC (26.0-32.0); MEAN CORPUSCULAR HGB CONC 33.1 g/L CALC (32.0-36.0); RED BLOOD COUNT 4.2 mill/uL (4.20-5.60); RED CELL DISTRI WIDTH 13.4 % (11.5-15.5)
[2017-08-25 07:14] LABS: BUN 4 mg/dL (7-17); BUN/CREATININE RATIO 7 (12-20 (CALC)); CALCIUM 8.8 mg/dL (8.4-10.2); CHLORIDE 96 mmol/l (95-108); CREATININE 0.6 mg/dL (0.5-1.0); GFR > 60 ML/MIN (>=60 (CALC)); GFR FOR AFR.AMER. > 60 ML/MIN (>=60 (CALC)); GLUCOSE 118 mg/dL (65-105); MAGNESIUM 2.3 mg/dL (1.6-2.3); POTASSIUM 3.8 mmol/l (3.5-5.1); SODIUM 146 mmol/l (137-146)
[2017-08-25 07:20] LABS: ANION GAP 9 (6-22 (CALC))
[2017-08-25 07:22] LABS: CARBON DIOXIDE 45 mmol/l (22-30)
[2017-08-25 08:43] VITALS: BP 161/75
--- NOTE | 2017-08-25 09:55 | NUR ---
DR IQBAL IN WITH PT, NO NEW ORDERS RECEIVED.
[2017-08-25 11:00] VITALS: BP 170/66
--- NOTE | 2017-08-25 12:00 | NUR ---
IN HIGH FOWLERS EATING LUNCH. RESPS EVEN AND UNLABORED ON O2 VIA NC, TELE MONITOR IN PLACE. #20 RFA INFUSING WITHOUT DIFFICULTY, SITE APPEARS HEALTHY. DENIES PAIN OR DISCOMFORT. CALL LIGHT WITHIN REACH. WILL CONTINUE TO MONITOR.
[2017-08-25] MEDS ORDERED: PREDNISONE10 MG PO (13:04)
[2017-08-25] MEDS ORDERED: DOXYCYC MONO100 M2 PO (13:04)
[2017-08-25] MEDS ORDERED: MAALOX ADV1 CHW PO (13:25)
[2017-08-25] MEDS ORDERED: CARAFATE1 GM PO (13:25)
--- NOTE | 2017-08-25 13:30 | NUR ---
DR POTTS IN WITH PT, NEW ORDERS RECEIVED.
--- NOTE | 2017-08-25 16:57 | NUR ---
Discharge instructions given. Patient verbalizes understanding of same. Discharged in stable condition via Wheelchair to Home with spouse. All belongings sent with pt.
== END 2017-08-25 16:55 | disposition home or self-care (01) | DRG 189 ==
LOC: ED 18:31 → ED-I 18:50 → ED 20:22 → ICU 20:23 → MS2 20:23 → ICU 08-22 06:16 → MS2 08-24 15:07
PROVIDERS: Emergency Medicine; Internal Medicine; ADMIT Internal Medicine; ATTEND Internal Medicine
DX: J96.21 Acute and chronic respiratory failure with hypoxia (principal); E43 Unspecified severe protein-calorie malnutrition; J44.0 Chronic obstructive pulmonary disease with (acute) lower respiratory infection; J44.1 Chronic obstructive pulmonary disease with (acute) exacerbation; Z68.1 Body mass index [BMI] 19.9 or less, adult; J96.22 Acute and chronic respiratory failure with hypercapnia; J20.9 Acute bronchitis, unspecified; E78.5 Hyperlipidemia, unspecified; F17.210 Nicotine dependence, cigarettes, uncomplicated; M81.0 Age-related osteoporosis without current pathological fracture; K21.9 Gastro-esophageal reflux disease without esophagitis; K44.9 Diaphragmatic hernia without obstruction or gangrene; R74.8 Abnormal levels of other serum enzymes; E87.6 Hypokalemia; R03.0 Elevated blood-pressure reading, without diagnosis of hypertension
CPT/HCPCS: J1650; Q9967

== ENCOUNTER 2017-11-10 12:09 | Inpatient (IN) | payer BC ==
[~2017-11-10] VITALS: Ht 157.5 cm; Wt 39.0 kg
[~2017-11-10 12:09] MED LIST changes: +ALENDRONATE70 MG PO; +CARAFATE1 GM PO; +DOXYCYC MONO100 M2 PO; +MAALOX ADV1 CHW PO; +MUCINEX MAXIM1200 MG PO; +NICOTINE T21 MG/242 TD; +PROTONIX40 M2 PO; +[UNRECOGNIZED DRUG - OTHER]
[2017-11-10 12:20] VITALS: BP 159/62
[2017-11-10 13:13] LABS: HEMATOCRIT 45.4 % (37.0-47.0); HEMOGLOBIN 14.4 g/dl (12.0-16.0); MEAN CELL VOLUME 99.6 fL CALC (80.0-100.0); MEAN CORPUSCULAR HGB 31.6 pG CALC (26.0-32.0); MEAN CORPUSCULAR HGB CONC 31.7 g/L CALC (32.0-36.0); RED BLOOD COUNT 4.56 mill/uL (4.20-5.60); RED CELL DISTRI WIDTH 13.2 % (11.5-15.5)
[2017-11-10 13:32] LABS: ALBUMIN 4.2 g/dL (3.2-5.0); ALKALINE PHOSPHATASE 68 u/l (38-126); ANION GAP 14 (6-22 (CALC)); BILIRUBIN, TOTAL 0.3 mg/dL (0.0-1.4); BUN 8 mg/dL (7-17); BUN/CREATININE RATIO 14 (12-20 (CALC)); CARBON DIOXIDE 35 mmol/l (22-30); CHLORIDE 99 mmol/l (95-108); CREATININE 0.6 mg/dL (0.5-1.0); GFR > 60 ML/MIN (>=60 (CALC)); GFR FOR AFR.AMER. > 60 ML/MIN (>=60 (CALC)); POTASSIUM 5.1 mmol/l (3.5-5.1); SGOT/AST 21 u/l (14-36); SGPT/ALT 37 u/l (9-52); SODIUM 143 mmol/l (137-146); TOTAL PROTEIN 6.6 g/dL (6.3-8.2)
[2017-11-10] MEDS ORDERED: VITAMIN D ×2 (13:51→13:52)
[2017-11-10] MEDS ORDERED: VITAMIN D1000 UNIT (13:52)
[2017-11-10 16:00] VITALS: BP 134/69
[2017-11-10 20:00] VITALS: BP 149/86
[2017-11-11] VITALS (8 sets, daily range): BP systolic 127–168; BP diastolic 60–88
[2017-11-11 05:33] LABS: ANION GAP 10 (6-22 (CALC)); BUN 10 mg/dL (7-17); BUN/CREATININE RATIO 16 (12-20 (CALC)); CARBON DIOXIDE 36 mmol/l (22-30); CHLORIDE 101 mmol/l (95-108); CREATININE 0.6 mg/dL (0.5-1.0); GFR > 60 ML/MIN (>=60 (CALC)); GFR FOR AFR.AMER. > 60 ML/MIN (>=60 (CALC)); POTASSIUM 4.5 mmol/l (3.5-5.1); SODIUM 142 mmol/l (137-146)
[2017-11-11 05:55] LABS: HEMATOCRIT 43.1 % (37.0-47.0); HEMOGLOBIN 13.9 g/dl (12.0-16.0); MEAN CELL VOLUME 99.1 fL CALC (80.0-100.0); MEAN CORPUSCULAR HGB CONC 32.3 g/L CALC (32.0-36.0); RED BLOOD COUNT 4.35 mill/uL (4.20-5.60)
[2017-11-11 17:04] LABS: URINE BILIRUBIN - DIPSTICK NEGATIVE (NEGATIVE); URINE BLOOD DIPSTICK NEGATIVE (NEGATIVE); URINE COLOR YELLOW; URINE GLUCOSE - DIPSTICK NEGATIVE (NEGATIVE); URINE KETONE TRACE mg/dL (NEGATIVE); URINE LEUK ESTERASE NEGATIVE (Negative); URINE NITRITE - DIPSTICK NEGATIVE (Negative); URINE PROTEIN - DIPSTICK NEGATIVE (NEG-TRACE); URINE SPECIFIC GRAVITY 1.015; URINE UROBILINOGEN - DIPSTICK 0.2 E.U./dL (0.2)
[2017-11-11 17:48] LABS: URINE CLARITY CLEAR
[2017-11-12 04:06] VITALS: BP 133/71
[2017-11-12 05:34] LABS: HEMATOCRIT 42.3 % (37.0-47.0); HEMOGLOBIN 13.7 g/dl (12.0-16.0); MEAN CELL VOLUME 98.8 fL CALC (80.0-100.0); MEAN CORPUSCULAR HGB CONC 32.4 g/L CALC (32.0-36.0); NEUT# 14.6 thou/uL (2.00-7.15); RED BLOOD COUNT 4.28 mill/uL (4.20-5.60); RED CELL DISTRI WIDTH 13.1 % (11.5-15.5)
[2017-11-12 06:03] LABS: ANION GAP 14 (6-22 (CALC)); BUN 15 mg/dL (7-17); BUN/CREATININE RATIO 27 (12-20 (CALC)); CARBON DIOXIDE 31 mmol/l (22-30); CHLORIDE 103 mmol/l (95-108); CREATININE 0.5 mg/dL (0.5-1.0); GFR > 60 ML/MIN (>=60 (CALC)); GFR FOR AFR.AMER. > 60 ML/MIN (>=60 (CALC)); POTASSIUM 4.4 mmol/l (3.5-5.1); SODIUM 143 mmol/l (137-146)
[2017-11-12 07:36] VITALS: BP 147/57
[2017-11-12 10:58] VITALS: BP 140/69
[2017-11-12 14:48] VITALS: BP 138/52
[2017-11-12 19:00] VITALS: BP 186/85
[2017-11-13] VITALS (8 sets, daily range): BP systolic 123–190; BP diastolic 60–91
[2017-11-13 05:47] LABS: HEMATOCRIT 42.5 % (37.0-47.0); HEMOGLOBIN 13.7 g/dl (12.0-16.0); MEAN CELL VOLUME 98.6 fL CALC (80.0-100.0); MEAN CORPUSCULAR HGB 31.8 pG CALC (26.0-32.0); MEAN CORPUSCULAR HGB CONC 32.2 g/L CALC (32.0-36.0); RED BLOOD COUNT 4.31 mill/uL (4.20-5.60); RED CELL DISTRI WIDTH 12.8 % (11.5-15.5)
[2017-11-13 05:51] LABS: ANION GAP 12 (6-22 (CALC)); BUN 16 mg/dL (7-17); BUN/CREATININE RATIO 28 (12-20 (CALC)); CARBON DIOXIDE 32 mmol/l (22-30); CHLORIDE 101 mmol/l (95-108); CREATININE 0.6 mg/dL (0.5-1.0); GFR > 60 ML/MIN (>=60 (CALC)); GFR FOR AFR.AMER. > 60 ML/MIN (>=60 (CALC)); POTASSIUM 3.9 mmol/l (3.5-5.1); SODIUM 141 mmol/l (137-146)
[2017-11-14 04:55] VITALS: BP 138/76
[2017-11-14 06:24] LABS: MEAN CELL VOLUME 97.5 fL CALC (80.0-100.0); MEAN CORPUSCULAR HGB 31.8 pG CALC (26.0-32.0); MEAN CORPUSCULAR HGB CONC 32.6 g/L CALC (32.0-36.0); RED BLOOD COUNT 4.72 mill/uL (4.20-5.60); RED CELL DISTRI WIDTH 13.2 % (11.5-15.5)
[2017-11-14 06:35] LABS: ANION GAP 14 (6-22 (CALC)); BUN 19 mg/dL (7-17); BUN/CREATININE RATIO 34 (12-20 (CALC)); CARBON DIOXIDE 31 mmol/l (22-30); CHLORIDE 102 mmol/l (95-108); CREATININE 0.5 mg/dL (0.5-1.0); GFR > 60 ML/MIN (>=60 (CALC)); GFR FOR AFR.AMER. > 60 ML/MIN (>=60 (CALC)); MAGNESIUM 2.2 mg/dL (1.6-2.3); POTASSIUM 3.9 mmol/l (3.5-5.1); SODIUM 143 mmol/l (137-146)
[2017-11-14 07:20] VITALS: BP 133/76
[2017-11-14 11:00] VITALS: BP 151/67
[2017-11-14 16:00] VITALS: BP 175/60
[2017-11-14 20:43] VITALS: BP 154/70
[2017-11-15 00:20] VITALS: BP 143/72
[2017-11-15 04:53] VITALS: BP 158/88
[2017-11-15 07:24] VITALS: BP 134/51
[2017-11-15 12:00] VITALS: BP 157/78
[2017-11-15] MEDS ORDERED: PREDNISONE10 MG PO (13:30)
[2017-11-15] MEDS ORDERED: ROBITUSSIN AC10 ML PO (13:30)
[2017-11-15] MEDS ORDERED: LEVAQUIN750 MG PO (13:30)
[2017-11-15] MEDS ORDERED: CARDIZEM CD120 MG PO (13:33)
[2017-11-15] MEDS ORDERED: LOSARTAN POT50 MG PO (13:33)
== END 2017-11-15 14:43 | disposition home or self-care (01) | DRG 189 ==
LOC: MS2 12:09 → ICU 12:09 → MS2 11-11 06:30
PROVIDERS: Nurse Practitioner Family; ADMIT Internal Medicine; ATTEND Internal Medicine
DX: J96.21 Acute and chronic respiratory failure with hypoxia (principal); E43 Unspecified severe protein-calorie malnutrition; J44.1 Chronic obstructive pulmonary disease with (acute) exacerbation; Z68.1 Body mass index [BMI] 19.9 or less, adult; J96.22 Acute and chronic respiratory failure with hypercapnia; F17.210 Nicotine dependence, cigarettes, uncomplicated; M81.0 Age-related osteoporosis without current pathological fracture; I10 Essential (primary) hypertension; E78.5 Hyperlipidemia, unspecified; K29.70 Gastritis, unspecified, without bleeding; K44.9 Diaphragmatic hernia without obstruction or gangrene; G62.9 Polyneuropathy, unspecified; R00.0 Tachycardia, unspecified; K21.9 Gastro-esophageal reflux disease without esophagitis; F41.1 Generalized anxiety disorder; F51.05 Insomnia due to other mental disorder
CPT/HCPCS: J1650

== ENCOUNTER 2018-03-12 11:54 | Inpatient (IN) | payer BC ==
[~2018-03-12] VITALS: Ht 154.9 cm; Wt 44.6 kg
[~2018-03-12 11:54] MED LIST changes: +CARDIZEM CD120 MG PO; +LOSARTAN POT50 MG PO; +ROBITUSSIN AC10 ML PO; +VITAMIN D; +VITAMIN D1000 UNIT
[2018-03-12 12:04] VITALS: BP 161/72
--- NOTE | 2018-03-12 12:04 | NUR ---
female pt received to ICU bed 2 direct admission via wc with o2 accompanied by volunteer and spouse; weight obtained via standing scale; admission assessment completed at this time; pt alert and oriented; denies pain; c/c shortness of breath and "chest filled with mucus"; no n/v noted; resp labored/ tachypneic; lungs coarse with wheezing throughout; skin color wnl; o2 per nc at 2.5L; moist medical device assembler cough noted; hr reg; strong pulses; no edema noted; st on monitor; bilat knee high michael hose placed; abd soft with bs present; no bm noted per editorial writer; pt admits to voiding without complication; no urine to inspect at this time; bsc; #20 inserted x1 attempt to lfa/labs obtained; site flushed and patent; bruising/ecchymosis noted to bue/ble; pt admits "bumping into stuff"; plan of care explained; pt oriented to bed and call light system; call light within reach; will continue to monitor
--- NOTE | 2018-03-12 12:35 | NUR ---
pt transported to radiology for cxr via wc with portable o2 accompanied per this proposal writer in stable condition; sob with very minimal exertion noted; 1245- returned to unit in stable condition; monitoring attachments explained and reconnected
[2018-03-12 12:37] LABS: HEMATOCRIT 42.2 % (37.0-47.0); HEMOGLOBIN 13.7 g/dl (12.0-16.0); IMMATURE GRANULOCYTES 0.4 % (0.0-1.0); MEAN CELL VOLUME 100.5 fL CALC (80.0-100.0); MEAN CORPUSCULAR HGB 32.6 pG CALC (26.0-32.0); MEAN CORPUSCULAR HGB CONC 32.5 g/L CALC (32.0-36.0); NEUT# 18.49 thou/uL (2.00-7.15); RED BLOOD COUNT 4.2 mill/uL (4.20-5.60); RED CELL DISTRI WIDTH 12.2 % (11.5-15.5)
[2018-03-12 12:53] LABS: ALBUMIN 4.4 g/dL (3.2-5.0); ALKALINE PHOSPHATASE 79 u/l (38-126); BILIRUBIN, TOTAL 0.5 mg/dL (0.0-1.4); BUN 8 mg/dL (7-17); BUN/CREATININE RATIO 16 (12-20 (CALC)); CARBON DIOXIDE 29 mmol/l (22-30); CHLORIDE 99 mmol/l (95-108); CREATININE 0.5 mg/dL (0.5-1.0); GFR > 60 ML/MIN (>=60 (CALC)); GFR FOR AFR.AMER. > 60 ML/MIN (>=60 (CALC)); POTASSIUM 4.2 mmol/l (3.5-5.1); SGPT/ALT 28 u/l (9-52)
[2018-03-12 12:54] LABS: SGOT/AST 21 u/l (14-36)
--- NOTE | 2018-03-12 12:58 | NUR ---
Dr Vee at bedside to assess pt and discuss plan of care
[2018-03-12 12:59] LABS: ANION GAP 9 (6-22 (CALC)); SODIUM 133 mmol/l (137-146)
--- NOTE | 2018-03-12 14:12 | NUR ---
awake; offers no complaints; no distress noted; o2 per nc; st on monitor; RT at bedside for ABG; call light within reach; will continue to monitor
--- NOTE | 2018-03-12 14:19 | NUR ---
RT unable to obtained ABG after 2 attempts; pt refusing additional attempts
--- NOTE | 2018-03-12 14:22 | NUR ---
unable to obtain abg after two attempts. pt refuses to be have test redone. feels it is not necessary sence she is already on home o2.
[2018-03-12 16:00] VITALS: BP 143/68
--- NOTE | 2018-03-12 16:03 | NUR ---
awake; offers no complaints; no distress noted; spouse present at bedside; iv intact; st on monitor; o2 per nc; call light within reach; will continue to monitor
--- NOTE | 2018-03-12 18:09 | NUR ---
awake in high jones position; offers no complaints; no distress noted; resp labored; o2 per nc; o2 sat 98%; iv intact; st on monitor; pt deny needs; bed in lowest position; call light within reach
--- NOTE | 2018-03-12 18:16 | NUR ---
michael auguste removed per pt request
--- NOTE | 2018-03-12 18:50 | NUR ---
REPORT FROM Cole GASCA RN. ASSUMED PT. CARE.
--- NOTE | 2018-03-12 19:15 | NUR ---
PT. FOUND AWAKE, ALERT, ORIENTED X 3. SKIN WARM AND DRY. SANTY. COVARRUBIAS. DENIES COMPLAINTS OF PAIN AT THIS TIME. ONLY C/O IS SOB, WHICH IS WORSE WITH EXERTION. PT. ON 2.5L NC AT THIS TIME. SPO2 IS 97% ON RA. COARSE AND WHEEZES THROUGHOUT. WHEEZY COUGH NOTED. INTERMITTENT BRONCHOSPASM TYPE COUGH NOTED. NO EDEMA NOTED. SINUS TACH LOW 100'S. WILL CONTINUE TO MONITOR.
[2018-03-12 20:00] VITALS: BP 133/73
--- NOTE | 2018-03-12 20:05 | NUR ---
PT. ASSISTED TO BEDSIDE COMMODE. APPROX 350 CC URINE OUT AT THIS TIME. INCREASED SOB WITH EXERTION NOTED. SPO2 REMAINS STABLE AT 97%. PROVIDED WITH CUP OF ICE PER PT. REQUEST. REMAINS AFEBILE AT THIS TIME. WILL CONTINUE TO MONITOR.
--- NOTE | 2018-03-12 22:26 | NUR ---
NEB TREATMENT IN PROGRESS AT THIS TIME. PT. REMAINS WITH INTERMITTENT WHEEZY TYPE COUGHING EPISODES. DENIES ANY OTHER COMPLAINTS OR NEEDS AT THIS TIME.
[2018-03-13] VITALS: BP 134/67
--- NOTE | 2018-03-13 00:20 | NUR ---
PT. ASSISTED TO BSC AND BACK TO BED AT THIS TIME. REMAINS AFEBRILE. STATES WITH MILD IMPROVEMENT IN WORK OF BREATHING. HR AND SPO2 IS IMPROVED. REMAINS ON 2.5L NC.
--- NOTE | 2018-03-13 03:05 | NUR ---
PT. RESTING IN BED WITH EYES CLOSED. RESPS EVEN, SHALLOW, UNLABORED AT THIS TIME. SPO2 IS 99% ON 2.5 VIA NC. REMAINS SINUS ON THE MONITOR. BP STABLE. CALL LIGHT REMAINS WITHIN REACH. WILL CONTINUE TO ASSESS.
[2018-03-13 04:00] VITALS: BP 129/68
[2018-03-13 05:25] LABS: HEMATOCRIT 41.3 % (37.0-47.0); HEMOGLOBIN 13.4 g/dl (12.0-16.0); MEAN CELL VOLUME 99.3 fL CALC (80.0-100.0); MEAN CORPUSCULAR HGB 32.2 pG CALC (26.0-32.0); MEAN CORPUSCULAR HGB CONC 32.4 g/L CALC (32.0-36.0); RED BLOOD COUNT 4.16 mill/uL (4.20-5.60); RED CELL DISTRI WIDTH 11.9 % (11.5-15.5)
--- NOTE | 2018-03-13 05:29 | NUR ---
PT. RESTING IN BED IN NO DISTRESS. REMAINS AWAKE, ALERT, ORIENTED X 3. NO DISTRESS. HR NOW 109 POST NEB TREATMENT. DRY WHEEZY COUGH NOTED. PT. DENIES COMPLAINTS OR NEEDS AT THIS TIME. WILL CONTINUE TO MONITOR.
[2018-03-13 05:38] LABS: ANION GAP 9 (6-22 (CALC)); BUN 10 mg/dL (7-17); BUN/CREATININE RATIO 19 (12-20 (CALC)); CARBON DIOXIDE 32 mmol/l (22-30); CHLORIDE 101 mmol/l (95-108); CREATININE 0.5 mg/dL (0.5-1.0); GFR > 60 ML/MIN (>=60 (CALC)); GFR FOR AFR.AMER. > 60 ML/MIN (>=60 (CALC)); MAGNESIUM 2.3 mg/dL (1.6-2.3); POTASSIUM 4.3 mmol/l (3.5-5.1); SODIUM 138 mmol/l (137-146)
--- NOTE | 2018-03-13 06:30 | NUR ---
PT. FOUND RESTING ON LT. SIDE IN NO DISTRESS. RESPS EVEN, SHALLOW UNLABORED. HR IMPROVED SR IN THE LOW 90'S. BP STABLE.
[2018-03-13 07:30] VITALS: BP 136/77
--- NOTE | 2018-03-13 07:30 | NUR ---
PT RESTING IN BED O2 @2.5LPM VIA NC. SA02@98%. PT ALERT AND ABLE TO MAKE ALL NEEDS KNOWN. ST ON TELELMETRY, HR- 104. LS COARSE WITH WHEEZING THROUGHOUT. BSX4, QUENTIN'S ON BLE. PT DENIES CHEST PAIN OR DISTRESS AT THIS TIME. CALL LIGHT IN REACH, WILL MONITOR.
--- NOTE | 2018-03-13 08:00 | NUR ---
PT REFUSED CARDIAC DIET TRYA, DR. POTTS NOTIFIED, NEW ORDERS RECIEVED FOR REGULAR DIET.
--- NOTE | 2018-03-13 08:20 | NUR ---
BREAKFAST TRAY ON UNIT, SET UP ASSIST AT BEDSIDE. CALL LIGHT IN REACH WILL MONITOR
--- NOTE | 2018-03-13 10:20 | NUR ---
DR. POTTS AT THE BEDSIDE FOR ASSESSMENT AND TO DISCUSS PLAN OF CARE. NEW ORDERS RECEIVED.
--- NOTE | 2018-03-13 11:15 | NUR ---
LUNCH TRAY SET UP. PT RESTING IN BED. O2@2.5LPM VIA NC CONTINUES, PT WITH SOB UPON EXERTION ONLY. PT DENIES CHEST PAIN OR DISTRESS AT THIS TIME. APPETITE GOOD. CALL LIGHT IN REACH, WILL MONITOR
--- NOTE | 2018-03-13 12:00 | NUR ---
PT RESTING IN THE BED, AT THE BEDSIDE. PT OFFERS NO COMPLAINTS AT THIS TIME. CALL LIGHT IN REACH. WILL MONITOR
--- NOTE | 2018-03-13 14:00 | NUR ---
RESPIRATORY AT BS WITH TREATMENT
--- NOTE | 2018-03-13 14:15 | NUR ---
PT ASSISTED TO BSC
--- NOTE | 2018-03-13 14:30 | NUR ---
CM AT BEDSIDE
--- NOTE | 2018-03-13 16:45 | NUR ---
PT RESTING IN BED WATCHING TV, PT OFFERS NO COMPLAINTS AT THIS TIME. CALL LIGHT IN REACH, WILL MONITOR
[2018-03-13 18:00] VITALS: BP 115/67; BP 151/81
--- NOTE | 2018-03-13 18:00 | NUR ---
PT RESTING IN BED, OFFERS NO COMPLAINTS AT THIS TIME. CALL LIGHT IN REACH, WILL MONITOR
--- NOTE | 2018-03-13 18:50 | NUR ---
REPORT FROM Ron TAMAYO RN. ASSUMED PT. CARE.
--- NOTE | 2018-03-13 19:42 | NUR ---
PT. FOUND AWAKE, ALERT, ORIENTED X 3. SCATTERED WHEEZES NOTED THROUGHOUT, SEE ASSESSMENT. COVARRUBIAS. SANTY. GOOD PULSES THROUGHOUT. GOOD BOWEL SOUNDS. DENIES BM TODAY. BP, HR STABLE AT THIS TIME. PT. REPORTS IMPROVEMENT IN DYSPNEA. STATES LT. LUNG TIGHTER ON SOB THAN THE RIGHT. DENIES COMPLAINTS OR NEEDS AT THIS TIME.
[2018-03-13 20:00] VITALS: BP 115/67
--- NOTE | 2018-03-13 21:59 | NUR ---
PT UP TO BSC WITHOUT ASSIST AND BACK TO BED AT THIS TIME. NO DISTRESS. RESPS REMAIN EVEN, SHALLOW AND UNLABORED. VSS. WILL CONTINUE TO ASSESS.
[2018-03-14 00:02] VITALS: BP 120/84
--- NOTE | 2018-03-14 00:17 | NUR ---
PT. RESTING ON SIDE IN NO DISTRESS. RESPS REMAIN EVEN, SHALLOW, UNLABORED AT THIS TIME. VSS. REMAINS SINUS IN THE UPPER 80'S. CALL LIGHT REMAINS WITHIN REACH. DENIES COMPLAINTS OR NEEDS.
[2018-03-14 04:00] VITALS: BP 135/65
--- NOTE | 2018-03-14 04:58 | NUR ---
LAB AT BEDSIDE AT THIS TIME. PT. AWAKE, ALERT, ORIENTED X 3. SKIN WARM AND DRY. PEARL. COVARRUBIAS. DENIES COMPLAINT OF PAIN OR NEED AT THIS TIME. REMAINS AFEBRILE. VSS.
[2018-03-14 05:30] LABS: HEMATOCRIT 39.6 % (37.0-47.0); HEMOGLOBIN 12.7 g/dl (12.0-16.0); MEAN CELL VOLUME 100.5 fL CALC (80.0-100.0); MEAN CORPUSCULAR HGB 32.2 pG CALC (26.0-32.0); MEAN CORPUSCULAR HGB CONC 32.1 g/L CALC (32.0-36.0); RED BLOOD COUNT 3.94 mill/uL (4.20-5.60); RED CELL DISTRI WIDTH 11.8 % (11.5-15.5)
[2018-03-14 05:41] LABS: ANION GAP 7 (6-22 (CALC)); BUN 11 mg/dL (7-17); BUN/CREATININE RATIO 21 (12-20 (CALC)); CARBON DIOXIDE 33 mmol/l (22-30); CHLORIDE 104 mmol/l (95-108); CREATININE 0.5 mg/dL (0.5-1.0); GFR > 60 ML/MIN (>=60 (CALC)); GFR FOR AFR.AMER. > 60 ML/MIN (>=60 (CALC)); POTASSIUM 4.4 mmol/l (3.5-5.1); SODIUM 140 mmol/l (137-146)
--- NOTE | 2018-03-14 07:25 | NUR ---
AM ASSESSMENT COMPLETED, SEE INTERVENTIONS, PT ALERT AND ORIENTED, OFFERS NO COMPLAINTS, LUNGS DIMINSHED WITH FAINT WHEEZES NOTED, PT STATES FEELING BETTER TODAY, O2 ON AT 2.5L VIA NC, PT HAS EXERTIONAL DYSPNEA BUT RECOVERS WITH REST, DENIES PAIN OR DISCOMFORT, CALL GILLETTE WITHIN REACH, WILL CONTINUE TO MONITOR.
[2018-03-14 07:45] VITALS: BP 114/54
--- NOTE | 2018-03-14 07:55 | NUR ---
AM MEAL CORRECTED AND DELIVERED AT THIS TIME, OFFERS NO NEW COMPLAINTS,
--- NOTE | 2018-03-14 08:30 | NUR ---
DIEATRY AT BEDSIDE FOR MEAL SELECTION
--- NOTE | 2018-03-14 08:49 | NUR ---
IN TO SEE PT, POC DISCUSSED
--- NOTE | 2018-03-14 09:37 | NUR ---
PT RESTING IN BED, TALKS ON PHONE INTERMITTENLY, CALL GILLETTE WITHIN REACH
--- NOTE | 2018-03-14 11:49 | NUR ---
AFTERNOON MEAL DELIVERED PT TAKING MEDICATIONS W/O INCIDENT
[2018-03-14 12:46] VITALS: BP 125/69
--- NOTE | 2018-03-14 14:58 | NUR ---
PREVIOUS IV ACCESS LEAKING, NO REDNESS OR SWELLING, NEW 22G STARTED IN LEFT FOREARM ON FIRST ATTEMPT BY Natalie ANGEL,DATABASE OPERATOR, PT TOLERATED WELL, GOOD ASPIRATE NOTED AND IV ABT REINITIATED, CALL GILLETTE WITHIN REACH
--- NOTE | 2018-03-14 15:43 | NUR ---
IV ABT COMPLETE AND PT TOLERATED WELL, APPETITE EXCELLENT WITH GOOD INTAKE AT EVERY MEAL, CALL GILLETTE WITHINR REACH, WILL CONTIUE TO MONITOR.
[2018-03-14 16:54] VITALS: BP 127/69
--- NOTE | 2018-03-14 17:00 | NUR ---
PT RESTING IN BED, AWAITING PM MEAL, OFFERS NO NEW COMPLAINTS, CALL GILLETTE WITHIN REACH.
--- NOTE | 2018-03-14 17:26 | NUR ---
SET UP ASSIST PROVIDED FOR PM MEAL, CALL GILLETTE WITHIN REACH, DENIES ANY OTHER COMPLAINTS,
--- NOTE | 2018-03-14 18:11 | NUR ---
DIETARY AT BEDSIDE FOR MENU SELECTIONS
--- NOTE | 2018-03-14 19:00 | NUR ---
RECIEVED REPORT FROM Ron KINNEY RN. ASSUMED CARE OF PT.
--- NOTE | 2018-03-14 19:30 | NUR ---
PT ALERT & ORIENTED X3, ABLE TO MAKE ALL NEEDS KNOWN. SR ON TELEMETRY, DENIES CHEST PAIN OR DISTRESS. LS ON LEFT INP/EXP WHEEZING THROUGHOUT, RIGHT- EXP WHEEZING THOUGHOUT. SOB WITH EXERTION, BS X4 ACTIVE, PASSING GAS. VOIDS IN BSC. SKIN INTACT, 22G TO LFA/SL FLUSHED WITHOUT RESISTANCE, NO S/S OF REDNESS OF INFILTRATION NOTED AT THIS TIME. PT WATCHING TV, CALL LIGHT IN REACH, WILL MONITOR.
[2018-03-14 20:00] VITALS: BP 146/65
--- NOTE | 2018-03-14 21:30 | NUR ---
ICE CHIPS REQUESTED AND GIVEN.
--- NOTE | 2018-03-14 21:45 | NUR ---
RT AT BEDSIDE FOR TREATMENT.
--- NOTE | 2018-03-14 22:00 | NUR ---
PT MEDICATED WITH PRN COUGH SYRUP FOR COUGH, NON- PRODUCTIVE AT THIS TIME. CALL LIGHT IN REACH, WILL MONITOR.
--- NOTE | 2018-03-14 23:59 | NUR ---
ICE CHIP REQUESTED AND GIVEN
[2018-03-15 00:09] VITALS: BP 145/64
--- NOTE | 2018-03-15 00:09 | NUR ---
PT RESTING IN BED WITH EYES CLOSED. ST ON TELEMETRY WITH INTERMITTENT PVC'S ON TELEMETRY NOTED, PT DENIES CHEST PAIN OR DISTRESS AT THIS TIME. 02@2.5LPM VIA NC CONTINUES PT STATES, " IFEEL JUST FINE". CALL LIGHT IN REACH, WILL MONITOR.
[2018-03-15 04:00] VITALS: BP 136/59
--- NOTE | 2018-03-15 04:00 | NUR ---
PT RESTING IN BED WITH EYES CLOSED, PT AFEBRILE, SR ON TELEMETRY. HR 80. PT DENIES CHEST PAIN OR DISTRESS AT THIS TIME. 02@2.5LPM VIA NC CONTINUES. CALL LIGHT IN REACH, WILL MONITOR.
--- NOTE | 2018-03-15 07:15 | NUR ---
AM ASSESSMENT COMPLETED, SEE INTERVENTIONS, PT ALERT AND ORIENTED RESTING IN BED WITH NO COMPLAINTS OFFERED, LUNGS DIMINSHED WITH FAINT WHEEZES NOTED RIGHT SIDE MORE DIMINSHED THAN LEFT, PT STATES FEELING A LITTLE BETTER TODAY, O2 ON AT 2.5L VIA NC, PT HAS EXERTIONAL DYSPNEA BUT RECOVERS WITH REST, OOB TO BSC INDEPENDENTLY, VS STABLE PT AFEBRILE, DENIES PAIN OR DISCOMFORT, CALL GILLETTE WITHIN REACH, WILL CONTINUE TO MONITOR.
[2018-03-15 07:45] VITALS: BP 116/49
--- NOTE | 2018-03-15 08:10 | NUR ---
SET UP ASSIST PROVIDED FOR AM MEAL, O2 REMAINS IN PLACE AT 2.5L, VIA NC. CALL GILLETTE WITHIN REACH
--- NOTE | 2018-03-15 09:00 | NUR ---
AT BEDSIDE POC DISCUSSED INCLUDING GETTING PT TO MED SURG UNIT (PT IS MED SURG OVERFLOW IN ICU) TO ALLOW PT INCREASED AMBULATION AND MOBILITY ON MED SURG UNIT
--- NOTE | 2018-03-15 09:15 | NUR ---
APPETITE GOOD WITH 100% INTAKE OF AM MEAL, DENIES PAIN OR DISCOMFORT, CALL GILLETTE WITHIN REACH
--- NOTE | 2018-03-15 10:10 | NUR ---
PT MEDICATED PER REQUEST FOR COUGH, TAKES PO WELL, OFFERS NO OTHER COMPLAINTS.
--- NOTE | 2018-03-15 11:20 | NUR ---
PT RESTING IN BED, WATCHING TELEVISION INTERMITTENLY, CALL GILLETTE WITHIN REAC
--- NOTE | 2018-03-15 11:33 | NUR ---
SET UP ASSIST FOR AFTERNOON MEAL, CALL GILLETTE WITHIN REACH.
[2018-03-15 12:15] VITALS: BP 121/59
--- NOTE | 2018-03-15 13:50 | NUR ---
IV ABT INFUSING W/O INCIDENT, CALL GILLETTE WITHIN REACH, VISITOR AT BEDSIDE, OFFERS NO NEW COMPLAINTS TOLERATES NEBS W/O INCIDENT.
--- NOTE | 2018-03-15 15:39 | NUR ---
PT AWARE OF PLANNED TRANSFER TO MED SURG ROOM 279, CALL GILLETTE WITHIN REACH
--- NOTE | 2018-03-15 16:10 | NUR ---
REPORT CALLED TO ESPERAN[facility] OCAMPO O MED SURG. ROOM 279 ASSIGNED, NO TELE PER VERBAL ORDER
--- NOTE | 2018-03-15 16:17 | NUR ---
PT STOOD AND TRASNFERRED TO WHEELCHAIR ALL BELONGINGS SENT WITH PATIENT, SPOUSE AT BEDSIDE AND AWARE OF TRASNFER
--- NOTE | 2018-03-15 16:24 | NUR ---
PT CAME FROM ICU VIA WHEELCHAIR BY PROTOTYPE ENGINEER. PROTOTYPE ENGINEER ASSIST PT TO SCALE AND THEN TO BED. ASSESSMENT DONE. LUNG SOUND WHEEZE/DIMINISHED. O2 AT 2.5L/MIN VIA NC. PT DENIES PAIN AT THIS TIME. CALL LIGHT IN REACH.
[2018-03-15 17:00] VITALS: BP 145/70
--- NOTE | 2018-03-15 20:00 | NUR ---
BEDSIDE REPORT RECEIVED FROM DAMARIS MATA. PT SITTING UP IN BED; ALERT AND ORIENTED. DENIES PAIN CURRENTLY. RESPIRATIONS EVEN AND UNLABORED ON OXYGEN. PLAN OF CARE DISCUSSED. PT ENCOURAGED TO VERBALIZE CONCERNS. STATES UNDERSTANDING. SAFETY MEASURES IN PLACE. CALL LIGHT WITHIN REACH.
--- NOTE | 2018-03-15 23:48 | NUR ---
PT RESTING IN BED WITH EYES CLOSED AND NO SIGNS OF DISTRESS; AWAKENS SPONTANEOUSLY. CONTINUES TO DENY PAIN. RESPIRATIONS EVEN AND UNLABORED ON OXYGEN AND SCHEDULED BREATHING TREATMENT ADMINISTERED AT 2300. LUNGS ARE DIMINISHED WITH EXPIRATORY WHEEZING IN LEFT LUNG. PAIN AND REDNESS NOTED TO IV SITE IN LFA; IV D/C'D AND NEW SITE PLACED TO RFA; THIS IV SITE APPEARS HEALTHY AND FLUSHES. PT IS INDEPENDENT IN ROOM; USES CALL LIGHT PRN FOR ASSISTANCE. NO REQUESTS OR CONCERNS AT THIS TIME. SAFETY MEASURES IN PLACE. CALL LIGHT WITHIN REACH.
--- NOTE | 2018-03-16 03:57 | NUR ---
PT ASLEEP AT THIS TIME WITH NO SIGNS OF DISRESS. RESPIRATIONS EVEN AND UNLABORED ON OXYGEN. NO ACUTE CHANGES IN CONDITION THROUGHOUT THE NIGHT. SAFETY MEASURES IN PLACE. CALL LIGHT WITHIN REACH.
[2018-03-16 04:09] VITALS: BP 141/85
[2018-03-16 09:04] VITALS: BP 135/73
--- NOTE | 2018-03-16 09:04 | NUR ---
PT RESTING IN BED, NO SIGNS OF DISTRESS NOTED,RESP EVEN AND UNLABORED. PT ALERT AND ORIENTED X3.ASSESSMENT COMPLETED AT THIS TIME. PT VOICES NO NEEDS OR COMPLAINTS AT THIS TIME. CALL LIGHT IN REACH,CONTINUE TO MONITOR.
--- NOTE | 2018-03-16 12:08 | NUR ---
PT RESTING IN BED WATCHING TV, NO SIGNS OF DISTRESS NOTED, RESP EVEN AND UNLABORED. PT VOICES NO NEEDS OR COMPLAINTS AT THIS TIME. CALL LIGHT IN REACH,CONTINUE TO MONITOR.
[2018-03-16 15:24] VITALS: BP 158/69
--- NOTE | 2018-03-16 17:01 | NUR ---
PT RESTING IN BED, NO SIGNS OF DISTRESS NOTED, RESP EVEN AND UNLABORED. PT VOICES NO NEEDS OR COMPLAINTS AT THIS TIME, CALL LIGHT IN REACH,CONTINUE TO MONITOR.
[2018-03-16 19:00] VITALS: BP 139/71
--- NOTE | 2018-03-16 20:06 | NUR ---
PT RESTING IN BED WATCHING TV. RESP EVEN AND UNLABORED WITH O2 IN PLACE. PT DENIES ANY PAIN OR DISCOMFORT. SAFETY PRECAUTIONS REINFORCED. FREQUENT ROUNDS MADE. CALL LIGHT WITHIN REACH.
[2018-03-16] MEDS ORDERED: PREDNISONE10 MG PO (21:20)
[2018-03-16] MEDS ORDERED: ROBITUSSIN AC10 ML PO (21:20)
--- NOTE | 2018-03-16 22:00 | NUR ---
SPOKE TO DR MAS ON PHONE IN REGARDS TO D/C ORDERS, ORDER CLARIFICATION; D/C ORDERS ARE FOR 03/17/18.
--- NOTE | 2018-03-17 00:50 | NUR ---
PT WOKE UPON ENTRY, PT DENIES PAIN. RESP EVEN AND UNLABORED WITH O2 IN PLACE. CALL LIGHT WITHIN REACH.
--- NOTE | 2018-03-17 04:19 | NUR ---
ASSESSMENT UNCHANGED; RESP EVEN AND UNLABORED WITH O2 IN PLACE. PT DENIES PAIN. CALL LIGHT WITHIN REACH.
[2018-03-17 04:40] VITALS: BP 140/87
[2018-03-17 07:55] VITALS: BP 158/73
--- NOTE | 2018-03-17 07:55 | NUR ---
PT RESTING IN BED NO SIGNS OF DISTRESS NOTED, RESP EVEN AND UNLABORED. PT ALERT AND ORIENTED X3, NO EDEMA. PT VOICES NO NEEDS OR COMPLAINTS AT THIS TIME. ASSESSMENT COMPLETED, CALL LIGHT IN REACH,CONTINUE TO MONITOR.
[2018-03-17 08:45] VITALS: BP 158/73
--- NOTE | 2018-03-17 10:45 | NUR ---
PT RESTING IN BED, NO SIGNS OF DISTRESS NOTED, RESP EVEN AND UNLABORED. PT VOICES NO NEEDS OR COMPLAINTS AT THIS TIME. CALL LIGHT IN REACH,CONTINUE TO MONITOR.
[2018-03-17] MEDS ORDERED: PREDNISONE10 MG PO (13:38)
--- NOTE | 2018-03-17 14:41 | NUR ---
Discharge instructions given. Patient verbalizes understanding of same. Discharged in stable condition via Wheelchair to Home with significant other. All belongings sent with pt.
== END 2018-03-17 14:38 | disposition home or self-care (01) | DRG 189 ==
LOC: ICU 11:54 → MS2 03-15 16:24
PROVIDERS: ADMIT Internal Medicine; ATTEND Internal Medicine
DX: J96.21 Acute and chronic respiratory failure with hypoxia (principal); E43 Unspecified severe protein-calorie malnutrition; J44.1 Chronic obstructive pulmonary disease with (acute) exacerbation; Z68.1 Body mass index [BMI] 19.9 or less, adult; J96.22 Acute and chronic respiratory failure with hypercapnia; M81.0 Age-related osteoporosis without current pathological fracture; F17.210 Nicotine dependence, cigarettes, uncomplicated; K21.9 Gastro-esophageal reflux disease without esophagitis; I10 Essential (primary) hypertension; F41.1 Generalized anxiety disorder; M62.59 Muscle wasting and atrophy, not elsewhere classified, multiple sites; Z99.81 Dependence on supplemental oxygen
CPT/HCPCS: J1650

== ENCOUNTER 2018-05-08 16:57 | Inpatient (IN) | payer BC ==
[~2018-05-08] VITALS: Ht 154.9 cm; Wt 44.9 kg
[2018-05-08 17:18] VITALS: BP 173/100
[2018-05-08] MEDS ORDERED: LIPITOR40 M1 PO (17:32)
[2018-05-08] MEDS ORDERED: PREDNISONE10 MG PO (17:32)
[2018-05-08 17:58] LABS: HEMOGLOBIN 13.9 g/dl (12.0-16.0); MEAN CELL VOLUME 97.4 fL CALC (80.0-100.0); MEAN CORPUSCULAR HGB 32.3 pG CALC (26.0-32.0); MEAN CORPUSCULAR HGB CONC 33.1 g/L CALC (32.0-36.0); RED BLOOD COUNT 4.31 mill/uL (4.20-5.60); RED CELL DISTRI WIDTH 13.7 % (11.5-15.5)
[2018-05-08 18:12] LABS: ALBUMIN 4.2 g/dL (3.2-5.0); ALKALINE PHOSPHATASE 67 u/l (38-126); ANION GAP 10 (6-22 (CALC)); BILIRUBIN, TOTAL 0.5 mg/dL (0.0-1.4); BUN 14 mg/dL (7-17); BUN/CREATININE RATIO 23 (12-20 (CALC)); CARBON DIOXIDE 36 mmol/l (22-30); CHLORIDE 99 mmol/l (95-108); CREATININE 0.6 mg/dL (0.5-1.0); GFR > 60 ML/MIN (>=60 (CALC)); GFR FOR AFR.AMER. > 60 ML/MIN (>=60 (CALC)); POTASSIUM 3.9 mmol/l (3.5-5.1); SGOT/AST 21 u/l (14-36); SGPT/ALT 35 u/l (9-52); SODIUM 140 mmol/l (137-146); TOTAL PROTEIN 6.8 g/dL (6.3-8.2)
[2018-05-08 19:50] VITALS: BP 137/76
[2018-05-09 04:05] VITALS: BP 138/73
[2018-05-09 08:00] VITALS: BP 132/70
[2018-05-09 16:30] VITALS: BP 148/89
[2018-05-09 20:26] VITALS: BP 140/82
[2018-05-10 00:20] VITALS: BP 155/85
[2018-05-10 04:46] VITALS: BP 131/71
[2018-05-10 08:00] VITALS: BP 152/65
[2018-05-10 11:21] VITALS: BP 139/80
[2018-05-10 15:36] VITALS: BP 118/71
[2018-05-10 19:28] VITALS: BP 142/79
[2018-05-11 00:30] VITALS: BP 127/68
[2018-05-11 04:27] VITALS: BP 129/71
[2018-05-11 08:10] VITALS: BP 158/76
[2018-05-11 11:22] VITALS: BP 152/81
[2018-05-11 15:19] VITALS: BP 148/76
[2018-05-11 20:00] VITALS: BP 138/73
[2018-05-12 00:27] VITALS: BP 119/69
[2018-05-12 04:26] VITALS: BP 141/65
[2018-05-12 07:50] VITALS: BP 145/77
[2018-05-12] MEDS ORDERED: ADLT ASA LOW81 MG PO (10:30)
[2018-05-12] MEDS ORDERED: MOTRIN400 MG/TAB PO (10:34)
[2018-05-12] MEDS ORDERED: PREDNISONE10 MG PO (11:05)
[2018-05-12 11:33] VITALS: BP 105/55
[2018-05-12 11:33] LABS: HEMATOCRIT 46.6 % (37.0-47.0); HEMOGLOBIN 15.2 g/dl (12.0-16.0); IMMATURE GRANULOCYTES 2.1 % (0.0-5.0); MEAN CELL VOLUME 97.9 fL CALC (80.0-100.0); MEAN CORPUSCULAR HGB 31.9 pG CALC (26.0-32.0); MEAN CORPUSCULAR HGB CONC 32.6 g/L CALC (32.0-36.0); NEUT# 19.4 thou/uL (2.00-7.15); RED BLOOD COUNT 4.76 mill/uL (4.20-5.60); RED CELL DISTRI WIDTH 13.2 % (11.5-15.5)
[2018-05-12 11:48] VITALS: BP 155/78
[2018-05-12 11:48] LABS: ANION GAP 15 (6-22 (CALC)); BUN 16 mg/dL (7-17); BUN/CREATININE RATIO 28 (12-20 (CALC)); CARBON DIOXIDE 34 mmol/l (22-30); CHLORIDE 98 mmol/l (95-108); CREATININE 0.6 mg/dL (0.5-1.0); GFR > 60 ML/MIN (>=60 (CALC)); GFR FOR AFR.AMER. > 60 ML/MIN (>=60 (CALC)); POTASSIUM 3.5 mmol/l (3.5-5.1); SODIUM 142 mmol/l (137-146)
== END 2018-05-12 12:56 | disposition home or self-care (01) | DRG 190 ==
LOC: MS2 16:57
PROVIDERS: General Practice; ADMIT Internal Medicine; ATTEND Internal Medicine
DX: J44.1 Chronic obstructive pulmonary disease with (acute) exacerbation (principal); E43 Unspecified severe protein-calorie malnutrition; J96.21 Acute and chronic respiratory failure with hypoxia; Z68.1 Body mass index [BMI] 19.9 or less, adult; F41.1 Generalized anxiety disorder; I10 Essential (primary) hypertension; E78.5 Hyperlipidemia, unspecified; M81.0 Age-related osteoporosis without current pathological fracture; K29.70 Gastritis, unspecified, without bleeding; K44.9 Diaphragmatic hernia without obstruction or gangrene; F17.210 Nicotine dependence, cigarettes, uncomplicated; G62.9 Polyneuropathy, unspecified

== ENCOUNTER 2018-06-14 08:37 | Emergency (ER) | payer BC ==
[~2018-06-14] VITALS: Ht 154.9 cm; Wt 50.0 kg
[~2018-06-14 08:37] MED LIST changes: +ADLT ASA LOW81 MG PO; +BIOTUSSIN PO; +DILTIAZEM120 MG PO; +LIPITOR40 M1 PO; +MELOXICAM7.5 MG PO; +MOTRIN400 MG/TAB PO
[2018-06-14 09:55] LABS: IMMATURE GRANULOCYTES 0.7 % (0.0-5.0); MEAN CELL VOLUME 98.8 fL CALC (80.0-100.0); MEAN CORPUSCULAR HGB 31.9 pG CALC (26.0-32.0); MEAN CORPUSCULAR HGB CONC 32.3 g/L CALC (32.0-36.0); NEUT# 19.19 thou/uL (2.00-7.15); RED BLOOD COUNT 4.11 mill/uL (4.20-5.60); RED CELL DISTRI WIDTH 14.5 % (11.5-15.5)
[2018-06-14 10:10] LABS: URINE BILIRUBIN - DIPSTICK NEGATIVE (NEGATIVE); URINE BLOOD DIPSTICK TRACE-LYSED (NEGATIVE); URINE GLUCOSE - DIPSTICK NEGATIVE (NEGATIVE); URINE KETONE TRACE mg/dL (NEGATIVE); URINE LEUK ESTERASE NEGATIVE (NEGATIVE); URINE NITRITE - DIPSTICK NEGATIVE (Negative); URINE PROTEIN - DIPSTICK 30 mg/dL (NEG-TRACE); URINE UROBILINOGEN - DIPSTICK 0.2 E.U./dL (0.2)
[2018-06-14 10:12] LABS: URINE CLARITY SL CLOUDY; URINE COLOR DK. YELLOW
[2018-06-14 10:14] LABS: URINE EPITHELIAL CELLS MODERATE EPI/hpf (0-FEW); URINE MUCUS FEW hpf (NONE-FEW); URINE RBC 0-2 RBC/hpf (0-5)
[2018-06-14 10:16] LABS: HEMATOCRIT 40.6 % (37.0-47.0); HEMOGLOBIN 13.1 g/dl (12.0-16.0)
[2018-06-14 10:20] LABS: ALBUMIN 2.4 g/dL (3.2-5.0); BILIRUBIN, TOTAL 0.5 mg/dL (0.0-1.4); CREATININE 1.6 mg/dL (0.5-1.0); POTASSIUM 4.3 mmol/l (3.5-5.1); TOTAL PROTEIN 4.4 g/dL (6.3-8.2)
[2018-06-14 10:38] LABS: INFLUENZA A NONE DETECTED (NONE DETECT); INFLUENZA B NONE DETECTED (NONE DETECT)
[2018-06-14 11:16] VITALS: BP 92/56
== END 2018-06-14 11:14 | disposition short-term general hospital (02) | DRG 871 ==
LOC: ED 08:37
PROVIDERS: Family Medicine
PROC: 0BH17EZ Insertion of Endotracheal Airway into Trachea, Via Natural or Artificial Opening (ICD-10-PCS; principal; 2018-06-14)
PROC: 02HV33Z Insertion of Infusion Device into Superior Vena Cava, Percutaneous Approach (ICD-10-PCS; 2018-06-14)
DX: A41.9 Sepsis, unspecified organism (principal); J18.9 Pneumonia, unspecified organism; R65.21 Severe sepsis with septic shock; J44.0 Chronic obstructive pulmonary disease with (acute) lower respiratory infection; I10 Essential (primary) hypertension; E78.5 Hyperlipidemia, unspecified; K29.70 Gastritis, unspecified, without bleeding; K44.9 Diaphragmatic hernia without obstruction or gangrene; F17.210 Nicotine dependence, cigarettes, uncomplicated
CPT/HCPCS: J0692

== ENCOUNTER 2018-10-08 10:48 | Inpatient (IN) | payer BC ==
[~2018-10-08] VITALS: Ht 154.9 cm; Wt 41.0 kg
[2018-10-08 11:29] LABS: HEMATOCRIT 40.7 % (37.0-47.0); HEMOGLOBIN 12.9 g/dl (12.0-16.0); IMMATURE GRANULOCYTES 1.9 % (0.0-5.0); MEAN CELL VOLUME 96.4 fL CALC (80.0-100.0); MEAN CORPUSCULAR HGB 30.6 pG CALC (26.0-32.0); MEAN CORPUSCULAR HGB CONC 31.7 g/L CALC (32.0-36.0); NEUT# 14.5 thou/uL (2.00-7.15); RED BLOOD COUNT 4.22 mill/uL (4.20-5.60); RED CELL DISTRI WIDTH 14.2 % (11.5-15.5)
[2018-10-08 12:07] LABS: ALKALINE PHOSPHATASE 68 u/l (38-126); BILIRUBIN, TOTAL 0.4 mg/dL (0.0-1.4); BUN 10 mg/dL (7-17); CHLORIDE 92 mmol/l (95-108); SGOT/AST 18 u/l (14-36); SODIUM 136 mmol/l (137-146)
[2018-10-08 12:09] LABS: ALBUMIN 3.6 g/dL (3.2-5.0); ANION GAP 14 (6-22 (CALC)); BUN/CREATININE RATIO 20 (12-20 (CALC)); CARBON DIOXIDE 34 mmol/l (22-30); CREATININE 0.5 mg/dL (0.5-1.0); GFR > 60 ML/MIN (>=60 (CALC)); GFR FOR AFR.AMER. > 60 ML/MIN (>=60 (CALC)); TOTAL PROTEIN 6.1 g/dL (6.3-8.2)
[2018-10-08 12:27] VITALS: BP 147/65
[2018-10-08 14:45] VITALS: BP 169/83
[2018-10-08] MEDS ORDERED: CLOPIDOGREL75 MG PO (15:16)
[2018-10-08] MEDS ORDERED: DUONEB IN (15:18)
[2018-10-08 19:10] VITALS: BP 142/67
[2018-10-09] VITALS (8 sets, daily range): BP systolic 137–170; BP diastolic 58–88
[2018-10-09 06:40] LABS: ALBUMIN 3.2 g/dL (3.2-5.0); ALKALINE PHOSPHATASE 56 u/l (38-126); ANION GAP 11 (6-22 (CALC)); BILIRUBIN, TOTAL 0.2 mg/dL (0.0-1.4); BUN 16 mg/dL (7-17); BUN/CREATININE RATIO 30 (12-20 (CALC)); CARBON DIOXIDE 34 mmol/l (22-30); CHLORIDE 98 mmol/l (95-108); CREATININE 0.5 mg/dL (0.5-1.0); GFR > 60 ML/MIN (>=60 (CALC)); GFR FOR AFR.AMER. > 60 ML/MIN (>=60 (CALC)); POTASSIUM 3.8 mmol/l (3.5-5.1); SGOT/AST 13 u/l (14-36); SODIUM 140 mmol/l (137-146); TOTAL PROTEIN 5.6 g/dL (6.3-8.2)
[2018-10-09 06:41] LABS: URINE BILIRUBIN - DIPSTICK NEGATIVE (NEGATIVE); URINE BLOOD DIPSTICK NEGATIVE (NEGATIVE); URINE COLOR YELLOW; URINE GLUCOSE - DIPSTICK 250 mg/dL (NEGATIVE); URINE KETONE NEGATIVE (NEGATIVE); URINE LEUK ESTERASE NEGATIVE (NEGATIVE); URINE NITRITE - DIPSTICK NEGATIVE (Negative); URINE PH 6.5 (4.5-8.0); URINE PROTEIN - DIPSTICK NEGATIVE (NEG-TRACE); URINE UROBILINOGEN - DIPSTICK 0.2 E.U./dL (0.2)
[2018-10-10 04:00] VITALS: BP 110/42; BP 172/79
[2018-10-10 05:41] LABS: IMMATURE GRANULOCYTES 1.1 % (0.0-5.0); MEAN CELL VOLUME 96.6 fL CALC (80.0-100.0); MEAN CORPUSCULAR HGB 30.3 pG CALC (26.0-32.0); MEAN CORPUSCULAR HGB CONC 31.4 g/L CALC (32.0-36.0); NEUT# 16.15 thou/uL (2.00-7.15); RED BLOOD COUNT 3.5 mill/uL (4.20-5.60); RED CELL DISTRI WIDTH 13.9 % (11.5-15.5)
[2018-10-10 06:12] LABS: HEMATOCRIT 33.8 % (37.0-47.0); HEMOGLOBIN 10.6 g/dl (12.0-16.0)
[2018-10-10 06:20] LABS: ALBUMIN 2.9 g/dL (3.2-5.0); ALKALINE PHOSPHATASE 58 u/l (38-126); AMYLASE < 30 u/l (30-110); ANION GAP 8 (6-22 (CALC)); BUN 17 mg/dL (7-17); BUN/CREATININE RATIO 26 (12-20 (CALC)); CARBON DIOXIDE 36 mmol/l (22-30); CHLORIDE 101 mmol/l (95-108); CREATININE 0.7 mg/dL (0.5-1.0); GFR > 60 ML/MIN (>=60 (CALC)); GFR FOR AFR.AMER. > 60 ML/MIN (>=60 (CALC)); LIPASE 27 u/l (23-300); MAGNESIUM 2.3 mg/dL (1.6-2.3); POTASSIUM 3.8 mmol/l (3.5-5.1); SGOT/AST 12 u/l (14-36); SODIUM 141 mmol/l (137-146); TOTAL PROTEIN 5.2 g/dL (6.3-8.2)
[2018-10-10 08:39] VITALS: BP 148/65
[2018-10-10 12:39] VITALS: BP 150/74
[2018-10-10 15:05] VITALS: BP 173/64
[2018-10-10 19:03] VITALS: BP 177/85
[2018-10-10 23:30] VITALS: BP 169/65
[2018-10-11 04:10] VITALS: BP 168/84
[2018-10-11 05:55] LABS: HEMATOCRIT 33.9 % (37.0-47.0); HEMOGLOBIN 10.7 g/dl (12.0-16.0); IMMATURE GRANULOCYTES 1.4 % (0.0-5.0); MEAN CELL VOLUME 96.9 fL CALC (80.0-100.0); MEAN CORPUSCULAR HGB 30.6 pG CALC (26.0-32.0); MEAN CORPUSCULAR HGB CONC 31.6 g/L CALC (32.0-36.0); NEUT# 10.91 thou/uL (2.00-7.15); RED BLOOD COUNT 3.5 mill/uL (4.20-5.60); RED CELL DISTRI WIDTH 13.7 % (11.5-15.5)
[2018-10-11 06:32] LABS: ALBUMIN 3.1 g/dL (3.2-5.0); ALKALINE PHOSPHATASE 54 u/l (38-126); ANION GAP 10 (6-22 (CALC)); BILIRUBIN, TOTAL 0.1 mg/dL (0.0-1.4); BUN 14 mg/dL (7-17); BUN/CREATININE RATIO 26 (12-20 (CALC)); CARBON DIOXIDE 36 mmol/l (22-30); CHLORIDE 98 mmol/l (95-108); CREATININE 0.6 mg/dL (0.5-1.0); GFR > 60 ML/MIN (>=60 (CALC)); GFR FOR AFR.AMER. > 60 ML/MIN (>=60 (CALC)); MAGNESIUM 2.2 mg/dL (1.6-2.3); POTASSIUM 4.1 mmol/l (3.5-5.1); SGOT/AST 12 u/l (14-36); SODIUM 140 mmol/l (137-146); TOTAL PROTEIN 5.3 g/dL (6.3-8.2)
[2018-10-11 08:57] VITALS: BP 172/77
[2018-10-11 11:39] VITALS: BP 170/56
[2018-10-11 15:39] VITALS: BP 162/76
[2018-10-11 19:00] VITALS: BP 176/57
[2018-10-12] VITALS (7 sets, daily range): BP systolic 125–157; BP diastolic 48–74
[2018-10-12 05:57] LABS: HEMATOCRIT 34.4 % (37.0-47.0); HEMOGLOBIN 10.8 g/dl (12.0-16.0); IMMATURE GRANULOCYTES 2.1 % (0.0-5.0); MEAN CELL VOLUME 96.4 fL CALC (80.0-100.0); MEAN CORPUSCULAR HGB 30.3 pG CALC (26.0-32.0); MEAN CORPUSCULAR HGB CONC 31.4 g/L CALC (32.0-36.0); NEUT# 8.3 thou/uL (2.00-7.15); RED BLOOD COUNT 3.57 mill/uL (4.20-5.60); RED CELL DISTRI WIDTH 13.6 % (11.5-15.5)
[2018-10-12 06:04] LABS: ALBUMIN 3.2 g/dL (3.2-5.0); ALKALINE PHOSPHATASE 54 u/l (38-126); ANION GAP 10 (6-22 (CALC)); BILIRUBIN, TOTAL 0.2 mg/dL (0.0-1.4); BUN 18 mg/dL (7-17); BUN/CREATININE RATIO 35 (12-20 (CALC)); CARBON DIOXIDE 36 mmol/l (22-30); CHLORIDE 95 mmol/l (95-108); CREATININE 0.5 mg/dL (0.5-1.0); GFR > 60 ML/MIN (>=60 (CALC)); GFR FOR AFR.AMER. > 60 ML/MIN (>=60 (CALC)); MAGNESIUM 2.3 mg/dL (1.6-2.3); POTASSIUM 3.8 mmol/l (3.5-5.1); SGOT/AST 12 u/l (14-36); SODIUM 138 mmol/l (137-146); TOTAL PROTEIN 5.3 g/dL (6.3-8.2)
[2018-10-13 04:03] VITALS: BP 147/70
[2018-10-13 08:36] VITALS: BP 149/70
[2018-10-13 12:00] VITALS: BP 134/70
[2018-10-13 16:00] VITALS: BP 137/65
[2018-10-13 19:43] VITALS: BP 144/67
[2018-10-14] VITALS (7 sets, daily range): BP systolic 146–161; BP diastolic 56–75
[2018-10-14 05:29] LABS: HEMOGLOBIN 10.8 g/dl (12.0-16.0); IMMATURE GRANULOCYTES 1.2 % (0.0-5.0); MEAN CELL VOLUME 95.5 fL CALC (80.0-100.0); MEAN CORPUSCULAR HGB 30.3 pG CALC (26.0-32.0); MEAN CORPUSCULAR HGB CONC 31.8 g/L CALC (32.0-36.0); NEUT# 10.57 thou/uL (2.00-7.15); RED BLOOD COUNT 3.56 mill/uL (4.20-5.60); RED CELL DISTRI WIDTH 13.4 % (11.5-15.5)
[2018-10-14 05:41] LABS: ANION GAP 10 (6-22 (CALC)); BUN 20 mg/dL (7-17); BUN/CREATININE RATIO 44 (12-20 (CALC)); CARBON DIOXIDE 37 mmol/l (22-30); CHLORIDE 96 mmol/l (95-108); CREATININE 0.5 mg/dL (0.5-1.0); GFR > 60 ML/MIN (>=60 (CALC)); GFR FOR AFR.AMER. > 60 ML/MIN (>=60 (CALC)); MAGNESIUM 2.2 mg/dL (1.6-2.3); POTASSIUM 3.8 mmol/l (3.5-5.1); SODIUM 139 mmol/l (137-146)
[2018-10-15 00:11] VITALS: BP 164/84
[2018-10-15 04:35] VITALS: BP 140/70
[2018-10-15 09:32] VITALS: BP 127/53
[2018-10-15 12:00] VITALS: BP 140/73
[2018-10-15 16:08] VITALS: BP 129/67
[2018-10-15 19:26] VITALS: BP 163/63
[2018-10-16 04:15] VITALS: BP 132/47
[2018-10-16 05:56] LABS: HEMATOCRIT 33.5 % (37.0-47.0); HEMOGLOBIN 10.8 g/dl (12.0-16.0); IMMATURE GRANULOCYTES 1.9 % (0.0-5.0); MEAN CELL VOLUME 94.1 fL CALC (80.0-100.0); MEAN CORPUSCULAR HGB 30.3 pG CALC (26.0-32.0); MEAN CORPUSCULAR HGB CONC 32.2 g/L CALC (32.0-36.0); NEUT# 9.68 thou/uL (2.00-7.15); RED BLOOD COUNT 3.56 mill/uL (4.20-5.60); RED CELL DISTRI WIDTH 13.4 % (11.5-15.5)
[2018-10-16 06:11] LABS: ALKALINE PHOSPHATASE 51 u/l (38-126); ANION GAP 9 (6-22 (CALC)); BILIRUBIN, TOTAL 0.2 mg/dL (0.0-1.4); BUN 28 mg/dL (7-17); BUN/CREATININE RATIO 58 (12-20 (CALC)); CARBON DIOXIDE 37 mmol/l (22-30); CHLORIDE 95 mmol/l (95-108); CREATININE 0.5 mg/dL (0.5-1.0); GFR > 60 ML/MIN (>=60 (CALC)); GFR FOR AFR.AMER. > 60 ML/MIN (>=60 (CALC)); POTASSIUM 3.9 mmol/l (3.5-5.1); SGOT/AST 13 u/l (14-36); SODIUM 138 mmol/l (137-146); TOTAL PROTEIN 4.9 g/dL (6.3-8.2)
[2018-10-16 08:41] VITALS: BP 131/55
[2018-10-16 08:45] VITALS: BP 131/55
[2018-10-16] MEDS ORDERED: LOSARTAN POT50 MG PO (13:27)
[2018-10-16] MEDS ORDERED: DOXYCYC MONO100 M2 PO (13:27)
[2018-10-16] MEDS ORDERED: CARDIZEM CD120 M1 PO (13:27)
[2018-10-16] MEDS ORDERED: PREDNISONE10 MG PO (13:29)
== END 2018-10-16 14:44 | disposition home or self-care (01) | DRG 189 ==
LOC: MS2 10:48
PROVIDERS: Internal Medicine Nephrology; Nurse Practitioner Family; ADMIT Internal Medicine; ATTEND Internal Medicine
DX: J96.22 Acute and chronic respiratory failure with hypercapnia (principal); J44.1 Chronic obstructive pulmonary disease with (acute) exacerbation; E46 Unspecified protein-calorie malnutrition; Z68.1 Body mass index [BMI] 19.9 or less, adult; I69.954 Hemiplegia and hemiparesis following unspecified cerebrovascular disease affecting left non-dominant side; J44.0 Chronic obstructive pulmonary disease with (acute) lower respiratory infection; J96.21 Acute and chronic respiratory failure with hypoxia; J20.9 Acute bronchitis, unspecified; M81.0 Age-related osteoporosis without current pathological fracture; E78.5 Hyperlipidemia, unspecified; F17.200 Nicotine dependence, unspecified, uncomplicated; I10 Essential (primary) hypertension; M94.0 Chondrocostal junction syndrome [Tietze]; K21.9 Gastro-esophageal reflux disease without esophagitis; F41.1 Generalized anxiety disorder; Z79.1 Long term (current) use of non-steroidal anti-inflammatories (NSAID)

== ENCOUNTER 2018-11-21 15:24 | Inpatient (IN) | payer BC ==
[~2018-11-21] VITALS: Ht 154.9 cm; Wt 42.0 kg
[~2018-11-21 15:24] MED LIST changes: +CARDIZEM CD120 M1 PO; +CLOPIDOGREL75 MG PO; +DUONEB IN
--- NOTE | 2018-11-21 15:40 | NUR ---
PT ARRIVED TO FLOOR VIA WHEELCHAIR IN STABLE CONDITION ACCOMPANIED BY SPOUSE AND VOLUNTEER;PT AMBULATED WITH A WEAK GAIT TO STANDING SCALE AND BEDSIDE;WT AND VS OBTAINED;CURRENT TEMP 100.4, AC LOWERED AND BLANKETS REMOVED WITH RE-ASSESS;PT REPORTS SOB AND WEAKNESS FOR THE PAST 3 DAYS, PRODUCTIVE COUGH WHITE/THICK AND SMALL;ASSESSMENT COMPLETED;PT REPORTS PAIN TO LEFT UPPER CHEST WALL FROM "HEART SNAP" PLACED IN JUNE 2018, REPORTS IT HAS BEEN HURTING EVER SINCE;PAIN SCALE AND REPORTING EDUCATED;RESPIRATIONS SHALLOW ON O2 @ 3L VIA NC,COARSE LUNG SOUNDS NOTED;ABDOMEN SOFT ON PALPATION AND ACTIVE IN ALL 4 QUADRANTS,LAST BM 11/20/18;WEAK PEDAL PULSES;SKIN INTACT;#22G STARTED ON FIRST ATTEMPT TO LAC BY THIS WRITTER,PT TOLERATED WELL;TELE MONITORING IN PLACE;FRESH WATER PROVIDED;PT DENIES ANY ADDITIONAL NEEDS AT THIS TIME AND IS ENCOURAGED TO CALL FOR ASSISTANCE IF NEEDED;CALL LIGHT IN REACH;WILL CONTINUE TO MONITOR
[2018-11-21 15:45] VITALS: BP 111/55
--- NOTE | 2018-11-21 16:00 | NUR ---
RT AT BEDSIDE
[2018-11-21 16:35] LABS: HEMATOCRIT 29.1 % (37.0-47.0); HEMOGLOBIN 9.1 g/dl (12.0-16.0); IMMATURE GRANULOCYTES 1.8 % (0.0-5.0); MEAN CELL VOLUME 97.3 fL CALC (80.0-100.0); MEAN CORPUSCULAR HGB 30.4 pG CALC (26.0-32.0); MEAN CORPUSCULAR HGB CONC 31.3 g/L CALC (32.0-36.0); NEUT# 18.14 thou/uL (2.00-7.15); RED BLOOD COUNT 2.99 mill/uL (4.20-5.60); RED CELL DISTRI WIDTH 15.4 % (11.5-15.5)
[2018-11-21 16:52] LABS: ALBUMIN 3.3 g/dL (3.2-5.0); ALKALINE PHOSPHATASE 66 u/l (38-126); ANION GAP 12 (6-22 (CALC)); BILIRUBIN, TOTAL 0.6 mg/dL (0.0-1.4); BUN 13 mg/dL (7-17); BUN/CREATININE RATIO 28 (12-20 (CALC)); CARBON DIOXIDE 36 mmol/l (22-30); CHLORIDE 91 mmol/l (95-108); CREATININE 0.4 mg/dL (0.5-1.0); GFR > 60 ML/MIN (>=60 (CALC)); GFR FOR AFR.AMER. > 60 ML/MIN (>=60 (CALC)); POTASSIUM 3.6 mmol/l (3.5-5.1); SGOT/AST 15 u/l (14-36); SODIUM 135 mmol/l (137-146); TOTAL PROTEIN 5.7 g/dL (6.3-8.2)
--- NOTE | 2018-11-21 16:54 | NUR ---
PT CURRENT TEMP 101.0.BLANKETS REMAIN REMOVED AND AC LOWERED;PT MEDICATED WITH PRN TYLENOL 650MG PO AT THIS TIME;WILL CONTINUE TO MONITOR
--- NOTE | 2018-11-21 17:00 | NUR ---
AT BEDSIDE DISCUSSING POC.
--- NOTE | 2018-11-21 17:06 | NUR ---
NOTIFIED ON PT BEING A SEPSIS RISK.
--- NOTE | 2018-11-21 18:35 | NUR ---
PT TRANSFERRED TO [facility] AND XR VIA WHEELCHAIR IN STABLE CONDITION ACCOMPANIED BY SALMA SCHUMACHER.
--- NOTE | 2018-11-21 19:00 | NUR ---
PT ARRIVED BACK TO FLOOR IN STABLE CONDITION;RE-POSITIONED BACK INTO BED AT THIS TIME;WILL CONTINUE TO MONITOR
[2018-11-21 19:28] VITALS: BP 110/57
--- NOTE | 2018-11-21 19:42 | NUR ---
ASSESSMENT COMPLETED; NO DISTRESS NOTED; O2 INFUSING PER NC @3LITERS/MIN; IV SITE PATENT AND SL; INSTRUCTED TO CALL FOR ALL OOB NEEDS; VERBALIZES UNDERSTANDING; CALL LIGHT IS IN REACH; WILL CONTINUE TO MONITOR.
[2018-11-21 20:36] LABS: URINE BILIRUBIN - DIPSTICK NEGATIVE (NEGATIVE); URINE BLOOD DIPSTICK NEGATIVE (NEGATIVE); URINE COLOR YELLOW; URINE GLUCOSE - DIPSTICK NEGATIVE (NEGATIVE); URINE KETONE NEGATIVE (NEGATIVE); URINE LEUK ESTERASE NEGATIVE (Negative); URINE NITRITE - DIPSTICK NEGATIVE (Negative); URINE PROTEIN - DIPSTICK TRACE mg/dL (NEG-TRACE); URINE UROBILINOGEN - DIPSTICK 0.2 E.U./dL (0.2)
[2018-11-21 20:49] LABS: URINE CLARITY CLEAR
--- NOTE | 2018-11-21 21:35 | NUR ---
PT. RESTING IN BED WITH NO DISTRESS NOTED; DENIES NEEDS; CALL LIGHT IS IN REACH.
[2018-11-22] VITALS: BP 99/54
--- NOTE | 2018-11-22 00:10 | NUR ---
ABT FINISHED; IV SITE FLUSHED; NO DISTRESS NOTED; DENIES NEEDS/PAIN; CALL LIGHT IS IN REACH.
--- NOTE | 2018-11-22 03:17 | NUR ---
PT. RESTING IN BED WITH NO DISTRESS NOTED; RESP EVEN AND UNLABORED; CALL LIGHT IS IN REACH; WILL CONTINUE TO MONITOR.
[2018-11-22 04:00] VITALS: BP 111/66
[2018-11-22 05:44] LABS: HEMATOCRIT 29.2 % (37.0-47.0); HEMOGLOBIN 9.3 g/dl (12.0-16.0); IMMATURE GRANULOCYTES 1.4 % (0.0-5.0); MEAN CORPUSCULAR HGB 30.9 pG CALC (26.0-32.0); MEAN CORPUSCULAR HGB CONC 31.8 g/L CALC (32.0-36.0); NEUT# 18.94 thou/uL (2.00-7.15); RED BLOOD COUNT 3.01 mill/uL (4.20-5.60)
--- NOTE | 2018-11-22 05:51 | NUR ---
PT. SITTING UP IN BED WITH NO DISTRESS NOTED; DENIES NEEDS;CALL LIGHT IS IN REACH; FRESH WATER GIVEN; CALL LIGHT IS IN REACH.
[2018-11-22 06:07] LABS: ALBUMIN 3.1 g/dL (3.2-5.0); ALKALINE PHOSPHATASE 57 u/l (38-126); AMYLASE < 30 u/l (30-110); ANION GAP 13 (6-22 (CALC)); BILIRUBIN, TOTAL 0.4 mg/dL (0.0-1.4); BUN 15 mg/dL (7-17); BUN/CREATININE RATIO 34 (12-20 (CALC)); CARBON DIOXIDE 35 mmol/l (22-30); CHLORIDE 95 mmol/l (95-108); CREATININE 0.4 mg/dL (0.5-1.0); GFR > 60 ML/MIN (>=60 (CALC)); GFR FOR AFR.AMER. > 60 ML/MIN (>=60 (CALC)); LIPASE 15 u/l (23-300); MAGNESIUM 2.3 mg/dL (1.6-2.3); POTASSIUM 4.1 mmol/l (3.5-5.1); SGOT/AST 15 u/l (14-36); SODIUM 139 mmol/l (137-146); TOTAL PROTEIN 5.5 g/dL (6.3-8.2)
--- NOTE | 2018-11-22 07:10 | NUR ---
REPORT RECEIVED FROM DAMARIS HALE;PT RESTING IN SEMI FOWLERS POSITION;RESPIRATIONS SHALLOW ON OXYGEN @ 3L VIA NC;PT DENIES ANY CURRENT PAIN OR NEEDS;TELE MONITORING IN PLACE;ENCOURAGED PT TO CALL FOR ASSISTANCE IF NEEDED;CALL LIGHT IN REACH;WILL CONTINUE TO MONITOR
--- NOTE | 2018-11-22 08:20 | NUR ---
PT RESTING IN SEMI FOWLERS POSITION WATCHING TV;ALERT AND ORIENTED X3;VS OBTAINED AND ASSESSMENT COMPLETED;PT DENIES ANY CURRENT PAIN OR DISCOMFORTS,PAIN SCALE AND REPORTING EDUCATED;RESPIRATIONS SHALLOW ON O2 @ 3L VIA NC,COARSE/WHEEZY LUNG SOUNDS NOTED;ABDOMEN SOFT ON PALPATION AND ACTIVE IN ALL 4 QUADRANTS;WEAK PEDAL PULSES;GENERALIZED BRUISING NOTED THROUGHOUT;TELE MONITORING IN PLACE;#22G TO LAC FLUSHED AND PATENT,SITE APPEARS HEALTHY;PT DENIES ANY CURRENT NEEDS AND IS ENCOURAGED TO CALL FOR ASSISTANCE IF NEEDED;CALL LIGHT IN REACH;WILL CONTINUE TO MONITOR
[2018-11-22 08:21] VITALS: BP 109/57
[2018-11-22 12:00] VITALS: BP 103/61
--- NOTE | 2018-11-22 12:00 | NUR ---
PT RESTING IN BED WATCHING TV;RESPIRATIONS SHALLOW ON O2 @ 3L VIA NC,FAN AT BEDSIDE;PT DENIES ANY CURRENT PAIN OR NEEDS;TELE MONITORING IN PLACE;IV SITE PATENT;ASSESSMENT REMAINS UNCHARGED AT THIS TIME;CALL LIGHT IN REACH;WILL CONTINUE TO MONITOR
--- NOTE | 2018-11-22 12:21 | NUR ---
AT BEDSIDE DISCUSSING POC.
[2018-11-22] MEDS ORDERED: XANAX0.25 MG PO (14:43)
[2018-11-22] MEDS ORDERED: LOSARTAN POT50 MG PO (14:44)
[2018-11-22] MEDS ORDERED: ATORVASTATIN CA10 MG PO (14:45)
--- NOTE | 2018-11-22 16:00 | NUR ---
PT RESTING IN SEMI FOWLERS POSITION;RESPIRATIONS REMAIN SHALLOW ON O2 @ 2L VIA NC;PT DENIES ANY CURRENT PAIN OR NEEDS;IV SITE TO LAC REMAINS PATENT;TELE MONITORING IN PLACE;PT ENCOURAGED TO EXPRESS ANY NEEDS OR CONCERNS;CALL LIGHT IN REACH;WILL CONTINUE TO MONITOR
[2018-11-22 16:51] VITALS: BP 101/51
[2018-11-22 18:45] VITALS: BP 115/59
--- NOTE | 2018-11-22 19:56 | NUR ---
PT. SITTING UP IN BED WITH NO DISTRESS NOTED; DENIES NEEDS/PAIN; ASSESSMENT COMPLETED; IV SITE PATENT AND SL; O2 INFUSING PER NC PER ORDER; PO FLUIDS OFFERED; CALL LIGHT IS IN REACH; WILL CONTINUE TO MONITOR.
--- NOTE | 2018-11-22 23:19 | NUR ---
SCHEDULED MEDICATIONS GIVEN; PT. DENIES NEEDS AT THIS TIME; ENCOURAGED TO CALL FOR ANY NEEDS; CALL LIGHT IS IN REACH; WILL CONTINUE TO MONITOR.
[2018-11-23 00:02] VITALS: BP 103/52
--- NOTE | 2018-11-23 03:25 | NUR ---
PT. RESTING IN BED WITH EYES CLOSED; RESP EVEN AND UNLABORED; CALL LIGHT IS IN REACH; WILL CONTINUE TO MONITOR.
[2018-11-23 04:02] VITALS: BP 127/63
[2018-11-23 05:54] LABS: HEMATOCRIT 26.7 % (37.0-47.0); HEMOGLOBIN 8.2 g/dl (12.0-16.0); IMMATURE GRANULOCYTES 1.2 % (0.0-5.0); MEAN CELL VOLUME 98.5 fL CALC (80.0-100.0); MEAN CORPUSCULAR HGB 30.3 pG CALC (26.0-32.0); MEAN CORPUSCULAR HGB CONC 30.7 g/L CALC (32.0-36.0); NEUT# 19.76 thou/uL (2.00-7.15); RED BLOOD COUNT 2.71 mill/uL (4.20-5.60); RED CELL DISTRI WIDTH 14.9 % (11.5-15.5)
[2018-11-23 06:05] LABS: ALBUMIN 2.9 g/dL (3.2-5.0); ALKALINE PHOSPHATASE 55 u/l (38-126); ANION GAP 11 (6-22 (CALC)); BILIRUBIN, TOTAL 0.2 mg/dL (0.0-1.4); BUN 15 mg/dL (7-17); BUN/CREATININE RATIO 29 (12-20 (CALC)); CARBON DIOXIDE 37 mmol/l (22-30); CHLORIDE 97 mmol/l (95-108); CREATININE 0.5 mg/dL (0.5-1.0); GFR > 60 ML/MIN (>=60 (CALC)); GFR FOR AFR.AMER. > 60 ML/MIN (>=60 (CALC)); MAGNESIUM 2.4 mg/dL (1.6-2.3); POTASSIUM 4.1 mmol/l (3.5-5.1); SGOT/AST 11 u/l (14-36); SODIUM 141 mmol/l (137-146); TOTAL PROTEIN 5.3 g/dL (6.3-8.2)
[2018-11-23 08:30] VITALS: BP 127/56
--- NOTE | 2018-11-23 08:34 | NUR ---
PT SITTING UP IN BED RESP EVEN AND UNLABORED, 02@3L NC; LUNGS WHEEZE/COARSE; RADIAL PULSE STRONG; PEDAL PULSE WEAK; GENERALIZED BRUISING; ACTIVE BS; TELE IN PLACE; IV FLUSHED WITHOUT DIFFICULTY; SITE APPEARS HEALTHY; CALL GILLETTE IN REACH; SAFETY PRECAUTION REINFORCE;
[2018-11-23 11:30] VITALS: BP 124/68
--- NOTE | 2018-11-23 11:36 | NUR ---
PT SITTING UP IN BED WATCHING TV; FAMILY MEMBER AT BEDSIDE; MEDICATED PER EMAR; IV SITE PATENT, ZOSYN INFUSING WITHOUT DIFFICULTY; RESP EVEN AND UNLABORED 02@3L NC; CALL GILLETTE AND BSC IN REACH.
--- NOTE | 2018-11-23 12:02 | NUR ---
DR GARCIA AT BEDSIDE TO DISCUSS POC, HOME MEDS
[2018-11-23 15:30] VITALS: BP 131/58
--- NOTE | 2018-11-23 15:48 | NUR ---
PT APPEARS TO BE SLEEPIN ON HER L SIDE; RESP EVEN AND UNLABORED; TELE IN PLACE; NO S/S OF DISTRESS NOTED;
--- NOTE | 2018-11-23 19:00 | NUR ---
RECEIVED REPORT FROM DAY NURSE. PT RESTING QUIETLY IN BED. NO NEEDS AT THIS TIME. CALL GILLETTE IN REACH. WILL CONTINUE TO MONITOR.
[2018-11-23 19:25] VITALS: BP 108/58
--- NOTE | 2018-11-23 21:38 | NUR ---
PT RESTING IN BED WITH EYES CLOSED MEDICATED PER ORDER. PT A&O x3. ASSESMENT COMPLETED AT THIS TIME(SEE INTERVENTIONS) LUNG SOUNDS WHEEZY, PRODUCTIVE COUGH NOTED. PT STATES ITS YELLOW AND THICK. HEART SOUNDS NORMAL, BOWEL SOUNDS ACTIVE, NO SWELLING OR EDEMA NOTED. BRUSING TO ARMS AND LEGS NOTED. IV FLUSHES WELL. PT READY FOR BED. NO NEEDS AT THIS TIME. CALL GILLETTE IN REACH. WILL CONTINUE TO MONITOR.
[2018-11-24] VITALS: BP 128/63
--- NOTE | 2018-11-24 00:44 | NUR ---
PT RESTING QUIETLY IN BED WITH EYES CLOSED. O2 @ 2L. MEDICATED PER ORDER.
[2018-11-24 03:50] VITALS: BP 116/58
--- NOTE | 2018-11-24 04:00 | NUR ---
PT APPEARS ASLEEP AT THIS TIME. CALL GILLETTE IN REACH. WILL CONTINUE TO MONITOR.
[2018-11-24 06:13] LABS: HEMATOCRIT 26.1 % (37.0-47.0); IMMATURE GRANULOCYTES 1.3 % (0.0-5.0); MEAN CELL VOLUME 101.2 fL CALC (80.0-100.0); MEAN CORPUSCULAR HGB CONC 30.7 g/L CALC (32.0-36.0); NEUT# 13.81 thou/uL (2.00-7.15); RED BLOOD COUNT 2.58 mill/uL (4.20-5.60); RED CELL DISTRI WIDTH 14.8 % (11.5-15.5)
[2018-11-24 06:22] LABS: ALBUMIN 2.8 g/dL (3.2-5.0); ALKALINE PHOSPHATASE 54 u/l (38-126); BILIRUBIN, TOTAL 0.1 mg/dL (0.0-1.4); BUN 18 mg/dL (7-17); BUN/CREATININE RATIO 37 (12-20 (CALC)); CHLORIDE 99 mmol/l (95-108); CREATININE 0.5 mg/dL (0.5-1.0); GFR > 60 ML/MIN (>=60 (CALC)); GFR FOR AFR.AMER. > 60 ML/MIN (>=60 (CALC)); MAGNESIUM 2.5 mg/dL (1.6-2.3); POTASSIUM 4.1 mmol/l (3.5-5.1); SGOT/AST 11 u/l (14-36); SODIUM 142 mmol/l (137-146); TOTAL PROTEIN 5.2 g/dL (6.3-8.2)
[2018-11-24 06:28] LABS: ANION GAP 7 (6-22 (CALC)); CARBON DIOXIDE 40 mmol/l (22-30)
--- NOTE | 2018-11-24 07:48 | NUR ---
PT SITTING UP IN BED EATING BREAKFAST AND WATCHING TV; VOICE NO CONCERNS; WILL CONTINUE TO MONITOR.
[2018-11-24 10:07] VITALS: BP 125/62
--- NOTE | 2018-11-24 10:13 | NUR ---
SITTING UP IN BED WATCHING TV; RESP LABORED ON 02@3L NC; TELE IN PLACE; IV PATENT FLUSHED WITHOUT DIFFICULTY; SITE APPEARS HEALTHY; LUNGS WHEEZE/COARSE; ACTIVE BOWEL SOUND; RADIAL PULSES STRONG; PEDAL PULSES WEAK; AM MEMS ADMINSTERED; CALL GILLETTE AND BEDSIDE COMMODE IN REACH; SAFETY PRECAUTION REINFORCE;
--- NOTE | 2018-11-24 11:37 | NUR ---
PT SITTING UP IN BED WATCHING TV AND VISITING WITH FAMILY MEMBER; RESP EVEN AND UNLABORED; ZOSYN INFUSING WITHOUT DIFFICULTY; VOICE NO CONCERNS;
--- NOTE | 2018-11-24 16:08 | NUR ---
PT AWAKE IN BED WATCHING TV; MOD BROWN BM & URINE EMPTIED FROM BSC; REQ ICE (DONE) RESP LESS LABORED; CALL GILLETTE IN REACH.
[2018-11-24 17:12] VITALS: BP 101/57
[2018-11-24 19:00] VITALS: BP 129/64
--- NOTE | 2018-11-24 19:00 | NUR ---
RECEIVED REPORT FROM DAY NURSE. PT RESTING IN BED WITH LIGHTS OFF. 02 @ 2L. NO NEEDS AT THIS TIME, JUST READY FOR BED.
--- NOTE | 2018-11-24 20:38 | NUR ---
PT RESTING QUIETLY IN BED. WAKES TO VERBAL STIMULI. ASSESMENT COMPLETED AT THIS TIME(SEE INTERVENTIONS). LUNG SOUNDS WHEEZY, HEART SOUNDS IRREGULAR, BOWEL SOUNDS ACTIVE. NO SWELLING OR EDEMA NOTED. IV FLUSHES WELL. NO NEEDS AT THIS TIME. PT MEDICATED PER ORDER. CALL GILLETTE IN REACH. WILL CONTINUE TO MONITOR.
[2018-11-24 23:35] VITALS: BP 123/68
[2018-11-25] VITALS (11 sets, daily range): BP systolic 119–179; BP diastolic 55–89
--- NOTE | 2018-11-25 00:07 | NUR ---
PT ASLEEP AT THIS TIME. WAKES TO VERBAL STIMULI. MEDICATED PER ORDER. NO NEEDS AT THIS TIME. CALL GILLETTE IN REACH. WILL CONTINUE TO MONITOR.
--- NOTE | 2018-11-25 04:00 | NUR ---
AUTOMATIC GLOVE TURNER AND FORMER IN TO OBTAIN VS. 02 @ 3L. NO NEEDS AT THIS TIME. WILL CONTINUE TO MONITOR.
[2018-11-25 05:28] LABS: ANION GAP 10 (6-22 (CALC)); BUN 18 mg/dL (7-17); BUN/CREATININE RATIO 42 (12-20 (CALC)); CHLORIDE 97 mmol/l (95-108); CREATININE 0.4 mg/dL (0.5-1.0); GFR > 60 ML/MIN (>=60 (CALC)); GFR FOR AFR.AMER. > 60 ML/MIN (>=60 (CALC)); MAGNESIUM 2.5 mg/dL (1.6-2.3); POTASSIUM 3.7 mmol/l (3.5-5.1); SODIUM 143 mmol/l (137-146)
[2018-11-25 05:32] LABS: HEMATOCRIT 27.4 % (37.0-47.0); HEMOGLOBIN 8.2 g/dl (12.0-16.0); IMMATURE GRANULOCYTES 2.4 % (0.0-5.0); MEAN CELL VOLUME 102.2 fL CALC (80.0-100.0); MEAN CORPUSCULAR HGB 30.6 pG CALC (26.0-32.0); MEAN CORPUSCULAR HGB CONC 29.9 g/L CALC (32.0-36.0); NEUT# 12.69 thou/uL (2.00-7.15); RED BLOOD COUNT 2.68 mill/uL (4.20-5.60); RED CELL DISTRI WIDTH 14.7 % (11.5-15.5)
[2018-11-25 05:47] LABS: CARBON DIOXIDE 40 mmol/l (22-30)
--- NOTE | 2018-11-25 07:04 | NUR ---
REPORT RECEIVED FROM OFF GOING NURSE; PT LAYING IN BED WATCHING TV; RESP EVEN AND UNLABORED; VOICE NO CONCERNS;
--- NOTE | 2018-11-25 09:10 | NUR ---
ASSESSMENT COMPLETED; LAYING IN BED STATED "WANTS TO SLEEP" ALERT ORIENT;AM MEDS ADMINISTERED, TOLERTATED WELL; TELE IN PLACE; IV SITE PATENT, FLUSHED WELL; BSC IN REACH; OFFERED PT SHOWER/SPONGE BATH, STATED SHE WILL WASH UP LATER. CALL GILLETTE IN REACH; VOICE NO CONCERNS.
--- NOTE | 2018-11-25 11:53 | NUR ---
PT SITTING UP IN BED, TRYING TO EAT LUNCH; ZOSYN INFUSHING WITHOUT DIFFICULTY; EMPTIED COMMODE, SM, SOFT, BROWN BM, MOD URINE; CALL GILLETTE IN REACH;
--- NOTE | 2018-11-25 13:46 | NUR ---
TWO FAILED ATTEMPTS TO START NEW IV; PT STATED CURRENT IV WORKS FINE EVEN THOUGH IT'S ;
--- NOTE | 2018-11-25 17:31 | NUR ---
SITTING UP IN BED WATCHING TV; RESP LABORED 02@4L NC; ZOSYN INFUSING; EMPTIED COMMODE 150CC CLEAR, NELLA URINE; VOICE NO CONCERNS; CALL GILLETTE IN REACH.
--- NOTE | 2018-11-25 19:30 | NUR ---
PATIENT RESTING IN BED AT THIS TIME-AWAKE ALERT AND ORIENTEDX3 WITH O2 VIA NASAL CANNULA IN PLACE AT 4LPM. PATIENT WITH TELE MONITOR IN PLACE. SALINE LOCK TO LEFT AC INTACT AND APPEARS HEALTHY AT THIS TIME. SAFETY PRECAUTIONS REINFORCED. CALL LIGHT IN REACH. WILL CONT TO MONITOR.
--- NOTE | 2018-11-25 21:10 | NUR ---
PATIENT FOUND LAYING ACROSS HER BED-UNRESPONSIVE TO VERBAL STIMULI. COLOR IS POOR WITH O2 VIA NASAL CANNULA IN PLACE. SKIN IS COLD AND DRY.VS [id number]/60, P-83, R-32 AND LABORED. O2 SATS 76%. ECOTHERAPIST CALLED AND RESPONDED TO ROOM. ABG DRAWN AND NEB TREATMENT GIVEN. PATIENT COLOR IMPROVED AND PATIENT BECAME MORE RESPONSIVE. O2 SAT IS NOW 92% WITH HR-82. DR. POTTS CALLED WITH ABG RESULTS. ORDER RECIEVED TO TRANSFER TO ICU ON BIPAP. CALLED ICU FOR BED-ICU-1. PATIENT TRANSFERRED TO ICU BED 1 VIA BED WITH O2 VIA NASAL CANNULA IN PLACE AT 4LPM. TELE MONITOR TAKEN OFF AND RETURNED TO ER WITH ELAINE OCAMPO. REPORT GIVEN TO CONCEPCION BOYD. O2 SAT IN ICU-96%, HR-77.
--- NOTE | 2018-11-25 21:43 | NUR ---
[facility] response [facility]. rt @ bedside. pt upset about bipap being placed. instructed pt STERNLY about bipap vs ventilator. bipap on per rt. hob in high fowlers position. school bus monitor shows sinus rhythm. saline lock in place. incont of bowel & bladder. linens changed. oriented to room.
--- NOTE | 2018-11-25 22:15 | NUR ---
pt removed bipao. instructed pt again sternly about bipap vs ventilator. bipap replaced. spoke to pt @ length regarding bipap, code status & treatment for this shift. pt nods head yes when asked if she understood. hob remains high fowlers position.
--- NOTE | 2018-11-25 22:30 | NUR ---
AT 2130, RT WAS CALLED TO ASSESS THE PATIENT. PATIENT WAS UNRESPONSIVE, A BREATHING TREATMENT WAS GIVEN AND ABG WAS DRAWN. RESULT IN MEDITECH. CALLED WITH ABG RESULT. PATIENT TRANSPORTED TO ICU TO BE ON BIPAP FOR THE NIGHT. PLACED ON BIPAP WITH 20/10, RATE 24 AND WITH 28% SPO2. PATIENT IS BEING MONITORING.
--- NOTE | 2018-11-25 22:50 | NUR ---
dr baker called this greeting card writer. updated on pts condition. no new orders.
--- NOTE | 2018-11-25 23:27 | NUR ---
rt here. abgs drawn.
[2018-11-26] VITALS (21 sets, daily range): BP systolic 157–189; BP diastolic 67–93
--- NOTE | 2018-11-26 00:01 | NUR ---
eyes closed. bipap cont. resp unlabored.
--- NOTE | 2018-11-26 02:00 | NUR ---
eyes closed. resps unlabored. no distress. phototypesetting equipment monitor shows sinus rhythm.
--- NOTE | 2018-11-26 04:00 | NUR ---
eyes closed. no distress. bipap cont.
--- NOTE | 2018-11-26 05:45 | NUR ---
awake. yelling. wants bipap off. instructed pt bipap woul be on until physician vs. pt became enraged began yelling "i can't breathe." instructed pt sao2 was 96%. pt began yelling @ rt. instructed pt rt & this tag writer were doing as ordered by physician.
--- NOTE | 2018-11-26 08:00 | NUR ---
PT SEEN INITIALLY ON BiPAP, SATS IN MID 90s. RESP THERAPY HAS DONE ABG THIS AM, ABLE TO CHANGE HER OVER TO NC. PT WITH SIGNIFICANTLY DECREASED LUNG SOUNDS WITH WHEEZING TO UPPER LOBES.
--- NOTE | 2018-11-26 09:32 | NUR ---
DAUGHTER JUAREZ LEAVES HER PHONE NUMBER SINCE HER FATHER OFTEN TURNS HIS PHONE OFF AT NIGHT, .
--- NOTE | 2018-11-26 11:15 | NUR ---
PT SEEN BY DR GARCIA THIS MORNING, DOING FAIRLY WELL WITHOUT BiPAP MACHINE. PT REALLY WANTS TO RETURN TO MED/SURG, BUT IT HAS TO BE SEEN IF SHE CAN CONTINUE WITHOUT IT.
--- NOTE | 2018-11-26 11:17 | NUR ---
discussed the possibility of pt wearing home bipap. pt agrees to antonio at home.
--- NOTE | 2018-11-26 12:41 | NUR ---
PT CONTINUES WELL WITH NC. NO DISTRESS NOTED.
--- NOTE | 2018-11-26 16:15 | NUR ---
PT REMAINS BEFORE, HAS NOT REQUIRED BiPAP MACHINE, 100% NC. PT HAS BEEN RESTING QUIETLY IN THE BED THIS AFTERNOON, HAS USED BSC TWICE.
--- NOTE | 2018-11-26 18:08 | NUR ---
PT HAS BEEN NAPPING FOR SOME OF THE AFTERNOON USING NASAL CANNULA ONLY, SATS SEEN UPPER 90s. NO DISTRESS NOTED, NO COMPLAINTS OF SHORTNESS OF BREATH.
--- NOTE | 2018-11-26 18:59 | NUR ---
ASSESSMENT COMPLETED; NO DISTRESS NOTED AT THIS TIME; SPOW 98% ON 3LITERS/MIN PER NC; IV SITE OUT OF DATE; PT. DECLINES WANTING IT CHANGED AT THIS TIME; IV SITE PATENT AND SL; CARIDAC MONITOR ON AND READING SR AT THIS TIME; WILL CONTINUE TO MONITOR. PT. REFUSES SOCKS; PO FLUIDS OFFERED; ENCOURAGED TO CALL FOR ANY NEEDS; CALL LIGHT IS IN REACH;
--- NOTE | 2018-11-26 20:07 | NUR ---
PT. RESTING IN BED WITH NO DISTRESS NOTED; DENIES NEEDS; PT. DID REFUSE BIPAP WITH RT FOR TONIGHT; O2 INFUSING PER NC @3LITERS/MIN PER NC; SPO2 WNL; WILL CONTINUE TO MONITOR. B/P 161/67 AND HR 100; MEDICATED WITH ORDERED CARDIZEM AND COZAAR; WILL CONTINUE TO MONITOR. DENIES NEEDS; CALL LIGHT IS IN REACH. WILL CONTINUE TO MONITOR.
--- NOTE | 2018-11-26 22:05 | NUR ---
ASSISTED ON AND OFF OF BSC; PT. WITH EXERTIONAL SOB; O2 INFUSING @3LITERS/MIN PER NC AND SPO2 93%. PT. CONTINUES TO REFUSE BIPAP; WILL CONTINUE TO MONITOR. CALL LIGHT IS IN REACH.
--- NOTE | 2018-11-26 22:30 | NUR ---
PT'S B/P STILL ELEVATED AT 168/74 AND PT. APPEARS SLIGHTLY ANXIOUS; ALONG WITH PT. C/O SLEEPLESSNESS; MEDICATED WITH ORDERED ATIVAN; WILL REASSESS; DENIES FURTHER NEEDS; CALL LIGHT IS IN REACH.
[2018-11-27] VITALS (12 sets, daily range): BP systolic 136–199; BP diastolic 67–83
--- NOTE | 2018-11-27 00:05 | NUR ---
NEW IV STARTED TO LW X1 ATTEMPT; IV SITE REMOVED TO LAC; CATHETER TIP INTACT;PT. DENIES NEEDS; CALL LIGHT IS IN REACH; WILL CONTINUE TO MONITOR.
--- NOTE | 2018-11-27 03:45 | NUR ---
VS OBTAINED; DENIES NEEDS/PAIN; SPO2 UP TO 92% ON O2; ENCOURAGED TO CALL FOR ANY NEEDS; CALL LIGHT IS IN REACH.
--- NOTE | 2018-11-27 04:30 | NUR ---
PT WILL DESAT IN SLEEP WITH SPO2 DOWN TO LOW 80'S; WHEN AWAKENED SPO2 GOES RIGHT UP TO 91-92% ON O2 @3LITERS/MIN PER NC; PT. CONTINUES TO REFUSE BIPAP; BUT IS IN AGREEMENT TO AT LEAST DO A NEBULIZER TX; PT. REFUSED EARLIER TX WHEN DUE; RT NOTIFIED TO COME FOR NEB TX.
--- NOTE | 2018-11-27 06:45 | NUR ---
REPORT RECVD FROM DAMARIS HALE AT START OF SHIFT.
--- NOTE | 2018-11-27 07:30 | NUR ---
PT REQUEST WE HOLD HER BREAKFAST. NOT READY TO EAT YET.
--- NOTE | 2018-11-27 10:00 | NUR ---
PT MEDICATED WITH AM MEDS & REQUESTED MED FOR ANXIETY.
--- NOTE | 2018-11-27 10:19 | NUR ---
DR GARCIA @BEDSIDE WITH PT.
--- NOTE | 2018-11-27 10:22 | NUR ---
DR GARCIA SPEAKING WITH DR MAS RE: TRANSFER FOR PULMONARY TO [facility].
--- NOTE | 2018-11-27 10:28 | NUR ---
SPOKE WITH MIREYA BLOUNT SUP [facility], ABOUT TRANSFER. SHE WCB WITH ROOM ASSIGNMENT, NONE AVAILABLE AT THIS TIME. DR GARCIA AWARE PT IS REFUSING BIPAP
--- NOTE | 2018-11-27 10:30 | NUR ---
MALE VISITOR @BEDSIDE.
--- NOTE | 2018-11-27 13:12 | NUR ---
PT STATES SHES NOT HUNGRY RIGHT NOW. REFUSES OTHER FOOD OFFERED.
--- NOTE | 2018-11-27 13:38 | NUR ---
REPORT GIVEN TO OLIVER CHIANG
--- NOTE | 2018-11-27 14:06 | NUR ---
PT IS RESTING IN BED FAMILY IN THE ROOM. IV SITE IS FREE FROM REDNESS OR EDEMA. CONTNUE TO OBSERVE AND MONITOR.
--- NOTE | 2018-11-27 14:27 | NUR ---
called received from Gi at [facility], pt assigned to room 304; primary nurse notified call placed to [facility] for transport.
--- NOTE | 2018-11-27 15:15 | NUR ---
REPORT GIVEN TO MONTSERRAT AT [facility]. [phone]
--- NOTE | 2018-11-27 15:28 | NUR ---
PT OUT THE DOOR WITH [facility] IN STABLE CONDITION WITH O2 & TELE
--- NOTE | 2018-11-27 15:36 | NUR ---
IV SITE REMAINS FREE FROM REDNESS OR EDEMA. TRANSPORTED VIA [facility] TO [facility]. CONTINUE TO OSBERVE AND MONITOR.
--- NOTE | 2018-11-27 16:09 | NUR ---
MONTSERRAT FROM [facility] CALLED BACK STATING PT WAS NOW GOING TO ICU ROOM 243. ASK ME TO CALL [phone] TO GIVE REPORT. GAVE REPORT TO ICU WHO STATED THEY WERE NOT READY FOR PT YET. INFORMED THEM SHE HAD ALREADY LEFT [facility].
== END 2018-11-27 15:28 | DRG 193 ==
LOC: MS2 15:24 → ICU 11-25 19:35
PROVIDERS: Internal Medicine Nephrology; Nurse Practitioner Family; ADMIT Internal Medicine; ATTEND Internal Medicine
DX: J18.9 Pneumonia, unspecified organism (principal); J96.22 Acute and chronic respiratory failure with hypercapnia; J96.21 Acute and chronic respiratory failure with hypoxia; E43 Unspecified severe protein-calorie malnutrition; J44.1 Chronic obstructive pulmonary disease with (acute) exacerbation; Z68.1 Body mass index [BMI] 19.9 or less, adult; J44.0 Chronic obstructive pulmonary disease with (acute) lower respiratory infection; I10 Essential (primary) hypertension; K21.9 Gastro-esophageal reflux disease without esophagitis; E78.5 Hyperlipidemia, unspecified; F41.1 Generalized anxiety disorder; F32.9 Major depressive disorder, single episode, unspecified; M94.0 Chondrocostal junction syndrome [Tietze]; F17.200 Nicotine dependence, unspecified, uncomplicated; Z86.73 Personal history of transient ischemic attack (TIA), and cerebral infarction without residual deficits; Z79.02 Long term (current) use of antithrombotics/antiplatelets; Z99.81 Dependence on supplemental oxygen; Z91.19 Patient's noncompliance with other medical treatment and regimen